=== PATIENT | female | born 1945 | race Caucasian/White ===

== ENCOUNTER → 2018-04-04 10:31 | Outpatient (CLI) | payer MEDICARE, SELFPAY ==
--- NOTE | 2018-04-04 | DI.RAD.S_ITS ---
PROCEDURE: XR LUMBAR SPINE 2-3V INDICATIONS: RIGHT HIP PAIN/ LOW BACK PAIN TECHNIQUE: 3 views of the lumbar spine were acquired. COMPARISON: None. FINDINGS: Bones: 5 [id number] vertebrae are present. There is mild focal scoliosis. There is mild atelectasis of L4 on L5. No vertebral body compression fractures. No suspicious bony lesions. There is mild to moderate degenerative disc disease throughout lumbar spine with disc space narrowing, endplate sclerosis and osteophyte formation. Moderate facet arthropathy is present at L4-L5 and L5-S1. Soft tissues: Overlying bowel gas pattern is normal. No suspicious soft tissue calcifications. Cholecystectomy clips are noted. IMPRESSION: Degenerative disc and facet disease. Dictated by: Abebe Rinaldi M.D. on 04/04/2018 at 11:29 Approved by: Abebe Rinaldi M.D. on 04/04/2018 at 11:32
--- NOTE | 2018-04-04 | DI.RAD.S_ITS ---
PROCEDURE: XR HIP W PEL IF DONE RT 2V INDICATIONS: RIGHT HIP PAIN/ LOW BACK PAIN TECHNIQUE: 2 views of the hip were acquired. COMPARISON: None. FINDINGS: Bones: No fractures or dislocations. No suspicious bony lesions. The visualized pelvic ring appears intact. There is mild symmetrical hip and sacroiliac joint degeneration. Mild degenerative changes in lower lumbar spine. Soft tissues: No suspicious soft tissue calcifications or masses. IMPRESSION: 1. Mild symmetric degenerative joint disease in hips and sacroiliac joints bilaterally. Dictated by: Abebe Rinaldi M.D. on 04/04/2018 at 11:43 Approved by: Abebe Rinaldi M.D. on 04/04/2018 at 11:44
== END ==
PROVIDERS: PCP Physician Assistant; Visit Provider Physician Assistant
DX: M51.36 Other intervertebral disc degeneration, lumbar region (principal); M16.11 Unilateral primary osteoarthritis, right hip; M54.5 Low back pain; M25.551 Pain in right hip; M47.816 Spondylosis without myelopathy or radiculopathy, lumbar region; M47.817 Spondylosis without myelopathy or radiculopathy, lumbosacral region; M47.818 Spondylosis without myelopathy or radiculopathy, sacral and sacrococcygeal region
CPT/HCPCS: 72100; 73502

== ENCOUNTER → 2018-04-07 16:06 | Outpatient (CLI) | payer MEDICARE, SELFPAY ==
--- NOTE | 2018-04-07 | DI.CT.S_ITS ---
PROCEDURE: CT PEL WO CON INDICATIONS: PAIN IN RIGHT HIP TECHNIQUE: Noncontrast 3 mm axial sections acquired through the bony pelvis, with coronal and sagittal reformatting. COMPARISON: [facility], CR, XR HIP W PEL IF DONE RT 2V, 04/04/2018, 10:15. FINDINGS: Image quality: Excellent. Bones: Examination of bony pelvis shows arthritic changes involving bilateral sacroiliac joints and bilateral hip joints. Osteophytic changes also noted involving symphysis pubis. No acute pelvic or hip fracture is seen. No hip dislocation. Bilateral femoral heads are intact. No evidence of avascular necrosis. Soft tissues: No pelvic free fluid or free air is seen. No evidence of bowel obstruction. No abnormal bowel wall thickening. Urinary bladder is within normal limits. There is no pelvic adenopathy. No gross pelvic or hip muscle abnormality. IMPRESSION: No evidence of acute pelvic or hip fracture. No hip dislocation. 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 No evidence of avascular necrosis. Dictated by: John Stevens M.D. on 04/07/2018 at 16:41 Approved by: John Stevens M.D. on 04/07/2018 at 16:44
== END ==
PROVIDERS: PCP Physician Assistant; Visit Provider Physician Assistant
DX: M25.551 Pain in right hip (principal); M16.0 Bilateral primary osteoarthritis of hip; M47.818 Spondylosis without myelopathy or radiculopathy, sacral and sacrococcygeal region
CPT/HCPCS: 72192

== ENCOUNTER → 2018-09-02 09:19 | Outpatient (CLI) | payer MEDICARE, SELFPAY ==
--- NOTE | 2018-09-02 | DI.MG.S_ITS ---
BILATERAL DIGITAL SCREENING MAMMOGRAM 3D/2D WITH CAD: 09/02/2018 CLINICAL: Routine screening. Comparison is made to exams dated: 08/05/2017 mammogram, 07/22/2016 mammogram, 04/02/2015 mammogram, 04/01/2014 mammogram - [facility], and 03/14/2013 mammogram - [facility]. There are scattered fibroglandular elements in both breasts. Current study was also evaluated with a Computer Aided Detection (CAD) system. There are benign calcifications in the right breast. No significant masses, calcifications, or other findings are seen in either breast. There has been no significant interval change. IMPRESSION: There is no mammographic evidence of malignancy. A 1 year screening mammogram is recommended. This exam was interpreted at Station ID: [id number]. NOTE: For mammograms, a report in lay terms will be sent to the patient. Approximately 15% of breast malignancies will not be visualized mammographically. In the management of a palpable breast mass, a negative mammogram must not discourage biopsy of a clinically suspicious lesion. Electronically Signed By: Horacio alexandre/maury:09/04/2018 07:49:47 letter sent: Normal Exam ACR BI-RADS Category 2: Benign Finding(s) [id number]
== END ==
PROVIDERS: PCP Physician Assistant; Visit Provider Physician Assistant
DX: Z12.31 Encounter for screening mammogram for malignant neoplasm of breast (principal)
CPT/HCPCS: 77063; 77067

== ENCOUNTER → 2019-05-13 12:50 | Outpatient (CLI) | payer MEDICARE, SELFPAY ==
--- NOTE | 2019-05-13 | DI.MRI.S_ITS ---
PROCEDURE: MR LUMBAR SPINE WO CON INDICATIONS: CERVICALGIA LOW BACK PAIN TECHNIQUE: Noncontrast sagittal T1 spin echo and T2 fast echo, sagittal STIR, axial T1 and T2 fast spin echo through the lumbar spine. In cases with scoliosis, additional coronal T2 fast spin echo may be performed. COMPARISON: [facility], CR, XR LUMBAR SPINE 2-3V, 04/04/2018, 10:15. [facility], CR, XR LUMBAR SPINE FLEXION EXTENSION, 05/02/2019, 11:01. FINDINGS: Image quality: Excellent. Alignment and Curvature: There is grade 1 anterolisthesis of L4 on L5. Bone Marrow: There are degenerative marrow signal changes at L2 and L3. No acute vertebral body compression fractures. Spinal Cord: Conus medullaris terminates at the L1 level. Visualized cord demonstrates normal signal and size. Paraspinous Soft Tissues: No paravertebral masses. L1-L2: Mild loss of disc height and disc desiccation. There is diffuse posterior disc bulge and disc osteophyte complex. The central canal is mildly narrowed. Rbhg-dt-amxdcciq bilateral foraminal stenosis. No definitive nerve root impingement. L2-L3: Mild loss of disc height and disc desiccation. There is diffuse posterior disc bulge and disc osteophyte complex. Superimposed right posterior paramedian disc extrusion with the extruding disc measuring 7 mm and posterior, surgeon in the emergency and 9 mm cephalocaudal, which occupies the right lateral recess. Mild bilateral facet arthropathy and hypertrophy of ligamentum flavum. The central canal is ojqaxsni-ns-pqshzxud narrowed. Severe right and mtoz-jh-ybubmszl left foraminal stenosis. Likely right L2 nerve root impingement. L3-L4: Preserved disc height. Moderate disc desiccation. There is diffuse posterior and posterior lateral disc bulge and disc protrusion. Moderate bilateral facet arthropathy and hypertrophy of ligamentum flavum. The central canal is mildly narrowed. Severe right and moderate left foraminal stenosis. Likely right L3 nerve root impingement. L4-L5: Preserved disc height. Moderate disc desiccation. There is diffuse posterior disc bulge. Severe bilateral facet arthropathy and hypertrophy of ligamentum flavum. The central canal is lfejmlnk-sr-jyeamcts narrowed. Moderate left and mild right foraminal stenosis. L5-S1: Preserved disc height. Moderate disc desiccation. There is diffuse posterior disc bulge. Moderate bilateral facet arthropathy. The central canal is patent. Moderate bilateral patient was name foraminal stenosis. IMPRESSION: 1. Multilevel degenerative disc disease and facet arthropathy as described. 2. Multilevel central canal stenosis, crrargut-uq-ffagxm at L2-L3 and L4-L5. 3. Multilevel foraminal stenosis as described. Dictated by: Abebe Rinaldi M.D. on 05/14/2019 at 10:31 Approved by: Abebe Rinaldi M.D. on 05/14/2019 at 17:21
--- NOTE | 2019-05-13 | DI.MRI.S_ITS ---
PROCEDURE: MR CERVICAL SPINE WO CON INDICATIONS: CERVICALGIA LOW BACK PAIN TECHNIQUE: Noncontrast sagittal T1 spin echo and T2 fast spin echo, sagittal STIR, foraminal oblique sagittal T2 fast spin echo, and axial gradient echo or T2 fast spin echo through the cervical spine. COMPARISON: None. FINDINGS: Image quality: Excellent. Alignment and Curvature: Loss of normal cervical lordosis. There is grade 1 anterolisthesis of C4 on C5, and minimal anterolisthesis of C3 on C4. Bone Marrow: Degenerative endplate signal changes are present. Spinal Cord: Severe loss of cord caliber at the level of C5-C6 and C6-C7 and mild-to- loss of cord caliber at C4-C5 consistent with myelomalacia. There is increased T2 signal in cervical cord from T5-C7 secondary to long-standing myelopathy. No cerebellar tonsillar herniation. Paraspinous Soft Tissues: No paravertebral masses. Prevertebral soft tissues are normal in thickness. C2-C3: Preserved disc height and disc desiccation. There is mild posterior disc bulge. The central canal is patent. No foraminal stenosis. No definitive nerve root impingement. C3-C4: Preserved disc height and disc desiccation. There is diffuse posterior disc bulge. Severe left and mild right facet arthropathy. The central canal is mildly narrowed. Severe left and mild right foraminal stenosis. There isleft nerve root impingement. C4-C5: Moderate loss of disc height and disc signal. There is diffuse posterior disc bulge. Posterior longitudinal ligament ossification. Severe left and mild right facet arthropathy. The central canal is severely narrowed. Severe left and moderate right foraminal stenosis. There is left nerve root impingement. C5-C6: Moderate loss of disc height and disc signal. There is diffuse posterior disc bulge. Bulky posterior longitudinal ligament ossification. Mild bilateral facet arthropathy. The central canal is severely narrowed. Severe bilateral foraminal stenosis. There is cord compression and bilateral nerve root impingement. C6-C7: Moderate loss of disc height and disc signal. There is diffuse posterior disc bulge. Bulky posterior longitudinal ligament ossification. The central canal is severely narrowed. Severe bilateral foraminal stenosis. There is cord compression and bilateral nerve root impingement. C7-T1: Preserved disc height and mild disc desiccation. There is bilateral uncovertebral hypertrophy. The central canal is patent. Moderate bilateral foraminal stenosis. IMPRESSION: 1. Multilevel degenerative disc disease and facet arthropathy as well less bulky posterior longitudinal ligament ossification in cervical spine. 2. Severe central canal stenosis at C5-C6 and C6-C7. 3. Multiple foraminal stenoses as described. 4. Myelopathy and myelomalacia in the cervical cord, severe at C5-C6 and C6-C7, cwko-jb-udnhdvcl at T5 and T5. Dictated by: Abebe Rinaldi M.D. on 05/14/2019 at 15:20 Approved by: Abebe Rinaldi M.D. on 05/14/2019 at 15:52
== END ==
PROVIDERS: PCP Physician Assistant; Visit Provider Orthopaedic Surgery
DX: M54.5 Low back pain (principal); M50.022 Cervical disc disorder at C5-C6 level with myelopathy; M47.12 Other spondylosis with myelopathy, cervical region; M51.04 Intervertebral disc disorders with myelopathy, thoracic region; M48.02 Spinal stenosis, cervical region; M48.05 Spinal stenosis, thoracolumbar region; G95.89 Other specified diseases of spinal cord; M51.36 Other intervertebral disc degeneration, lumbar region; M47.816 Spondylosis without myelopathy or radiculopathy, lumbar region; M47.817 Spondylosis without myelopathy or radiculopathy, lumbosacral region; M48.061 Spinal stenosis, lumbar region without neurogenic claudication; M48.07 Spinal stenosis, lumbosacral region
CPT/HCPCS: 72141; 72148

== ENCOUNTER → 2019-05-16 14:06 | Outpatient (CLI) | payer MEDICARE, SELFPAY ==
[2019-05-16 14:45] LABS: Add Manual Diff / Slide Review NO; Basophils Absolute Auto 100 /uL (0-100); Basophils Percent Auto 0.7 % (0-2); Eosinophils Absolute Auto 100 /uL (0-450); Eosinophils Percent Auto 1.5 % (2-4); Hematocrit 46.5 % (36-46); Hemoglobin 15.6 g/dL (12.0-16.0); Lymphocytes Absolute Auto 1800 /uL (1100-4500); Lymphocytes Percent Auto 21.8 % (25-40); Mean Corpuscular HGB Conc 33.5 % (30-36); Mean Corpuscular Volume 92.6 fL (80-100); Monocytes Absolute Auto 600 /uL (0-900); Monocytes Percent Auto 6.8 % (3-14); Neutrophils Absolute Auto 5700 /uL (1500-7000); Neutrophils Percent Auto 69.2 % (50-75); Platelet Count 252 X10^3/uL (150-400); Red Blood Cell Count 5.02 X10^6/uL (4.0-5.2); Red Cell Distribution Width 14.1 % (11.6-14.8); White Blood Cell Count 8.2 X10^3/uL (4.5-11.0)
[2019-05-16 15:07] LABS: BUN Creatinine Ratio 18.6 (6-22); Blood Urea Nitrogen 13 mg/dL (7-17); Calcium 9.8 mg/dL (8.4-10.2); Carbon Dioxide 24 mmol/L (22-32); Chloride 105 mmol/L (98-107); Estimated Glomerular Filt Rate > 60.0 mL/min (>60); Glucose 129 mg/dL (80-110); HEMOLYSIS 40 (0-50); Potassium 3.9 mmol/L (3.4-5.1); Sodium 140 mmol/L (137-145)
== END ==
PROVIDERS: PCP Physician Assistant; Visit Provider Orthopaedic Surgery
DX: Z01.818 Encounter for other preprocedural examination (principal)
CPT/HCPCS: 36415; 80048; 85025; 93005

== ENCOUNTER 2019-05-24 06:07 | Inpatient (IN) | payer MEDICARE, SELFPAY ==
[2019-05-23 07:52] VITALS: BMI 37.1
[2019-05-24] VITALS (13 sets, daily range): BP systolic 115–137; BP diastolic 66–83; PULSE 67–102; RESP 11–23; TEMP 35.8–36.9; O2SAT 93–98; BMI 37.2
--- NOTE | 2019-05-24 | DI.RAD.S_ITS ---
PROCEDURE: XR CERVICAL SPINE 2V OR 3V INDICATIONS: C4-5, C5-6 ANTERIOR FUSION, CORPECTOMY TECHNIQUE: 3 view(s) of the cervical spine were acquired. COMPARISON: [facility], CARITO, XR CERVICAL SPINE 2 OR 3 VIEWS, 05/16/2019, 11:06. [facility], MR, MR CERVICAL SPINE WO CON, 05/13/2019, 13:44. FINDINGS: Bones: With reference to the preoperative images the patient has undergone anterior fusion, between what appears to be the C4 vertebral body and the C7 vertebral body. A portion of the vertebral bodies at C6 and C7 appear to have been resected with some form of interbody orthopedic prosthesis. The C4 bilateral anterior fixation screws on the lateral view are clearly within the T4 vertebral body, but the exact positioning of the C5 screws is in determinate and conceivably could be superimposed on the C5-C6 disc space. Soft tissues: No prevertebral soft tissue swelling. IMPRESSION: The exact anatomic positioning of the second set of bilateral fixation screws through the anterior fusion plate below the C4 vertebral body screws is indeterminate by plain film imaging, potentially superimposed on the C5-C6 disc space. A portion of the lower cervical spine vertebral bodies has been resected with an apparent orthopedic prosthesis device occupying the interspace. Again, the exact anatomy in this area cannot be established on plain film and followup CT scanning may be warranted. Dictated by: Eliseo Park M.D. on 05/24/2019 at 12:18 Approved by: Eliseo Park M.D. on 05/24/2019 at 12:46
--- NOTE | 2019-05-24 07:02 | PM.PREOP ---
Pre-operative Note Interval Note History & Physical reviewed/Exam performed by Physician: Yes Changes to H&P: No
--- NOTE | 2019-05-24 07:23 | P.OP_ITS ---
Operative Date/Time/Diagnoses Date of procedure: 05/24/19 Time of procedure: 11:42 Pre-op diagnosis: Cervical stenosis with myelopathy Post-op diagnosis: same Procedure & Clinicians Procedure: C4-5 anterior cervical diskectomy and fusion C6 corpectomy with C5-6 and C6-7 diskectomies C4-5 cage C6 corpectomy cage Three level anterior cervical plate Iliac crest bone graft aspirate Use of microscope Same procedure as scheduled: Yes Indications: [age] year old female with progressive myelopathy with severe cervical stenosis. She had failed conservative management and requested operative intervention. Risks and benefits of surgery were discussed and appropriate consents were obtained. Surgeon: Herber Villarreal Mainstreaming Facilitator: Kathy Kim Anesthesia Type: General Operative Notes Findings: None Closure Type: primary Specimen(s): none sent Prosthetic devices, grafts, tissues, transplants, or devices: NuVasive cervical CoRoent cage NuVasive Xcore mini cervical expandable cage NuVasive Archon plate Applied: catheter Estimated Blood Loss (mL): 50 Blood products transfused: none Procedure in detail: Patient was brought to the operating room and intubated on the table. A time-out was performed. Preoperative antibiotics were given. The neck was prepped and draped in the standard sterile fashion. Using a skin fold, we made a 4 cm longitudinal incision on the left side. We used Bovie to go through the platysma and then did a standard anterolateral blunt dissection down to the precervical fascia. Fascia was nicked and elevated up. A marker was placed and x-ray was taken for localization. We then subperiosteally elevated up the longus colli muscles. Self-retaining retractors were placed. Heavener pins were placed at C4 and C5. We brought in the microscope. A scalpel used to perform an annulotomy at C4-5. A combination of curettes, Kerrisons, pituitaries were used perform the anterior diskectomy at this level. Used the bur to remove some posterior osteophytes. We then took down the PLL and removed the large herniated disc tissue until the central canal was free. We could run the nerve hook out the neural foramen and along the superior and inferior endplates and everything appeared open. A small stab incision was made over the left anterior iliac crest. A Jamshidi needle was advanced down the pedicle and 5 mL of bone marrow was aspirated. We then trialed and placed a Coroent cage packed with Osteocel bone graft and the icbg aspirate into the C4-5 disc space and confirmed positioning under x- ray. We then moved our retractors down, centered around the C6 vertebral body. We used a scalpel to perform an annulotomy at C5-6 and C6-7. We used curettes, Kerrisons, and pituitaries to perform diskectomies at these levels. We then used combination of Leksell rongeur, Kerrisons, curettes, and a bur to perform a central channel corpectomy through C6. We came down to the PLL. We used a nerve hook to go through the PLL at mid body and began pulling it up and carefully peeling it back from the dura. We continued removing the thickened disc and ligament tissue until we could run a nerve hook along both sides of the corpectomy as well as along the inferior endplate of C5 and the superior endplate of C7 and everything appeared decompressed. We trialed and measured for our expandable cage. This was conformed with lordotic endplates and packed with bone graft. This was inserted into the corpectomy site and then expanded with x-ray guidance. We then packed more bone graft into the cage as well as anterior to the cage. We then trialed our plate under x-ray and positioned it with temporary pins. We used the awl to drill holes and placed fixed locking screws into C4, C5, and C7. Final x-rays were taken. The wound was irrigated. There was no bleeding. The carotid was beating nicely. A Victorino drain was placed. The platysma was closed. The superficial was closed. The skin was closed. A sterile dressing was placed. They were then extubated and brought to recovery room with no complications. Complications: none Post-operative Condition: stable Disposition: PACU Plan for aftercare: Inpatient. Up with therapy.
[2019-05-24] MEDS: LACTATED RINGERS 1,000 ML 42 ML IV ×2 (07:33→10:11)
[2019-05-24] MEDS: CEFAZOLIN 2 GM/100 ML FROZ.PIGGY IV ×2 (07:53→15:56)
--- NOTE | 2019-05-24 08:30 | SUR.OPER ---
Supine, head on gel donut. Arms padded with gel pads, tucked at sides, towel roll under shoulders. Safety belt at thigh. Legs uncrossed with tape over blanket
[2019-05-24] MEDS: BUPIVACAINE 0.25% W/ EPI 30 ML VIAL 60 ML INJ (08:50)
[2019-05-24] MEDS: THROMBIN (RECOMBINANT) 5,000 UNIT VIAL 5000 UNIT TOP (08:50)
[2019-05-24] MEDS: SODIUM CHLORIDE 0.9% 1,000 ML, GENTAMICIN 80 MG IRR (08:51)
--- NOTE | 2019-05-24 12:42 | SUR.PHASEI ---
Report called to Tim.
--- NOTE | 2019-05-24 12:48 | SUR.PHASEI ---
Swallowed after having an ice chip without difficulty.
--- NOTE | 2019-05-24 13:12 | SUR.PHASEI ---
Patient transferred to the floor with a black bag and blue/black bag. Report to [place]. VS stable. Dressings checked with RN, unchanged. IV saline locked.
[2019-05-24] MEDS: LACTATED RINGERS 1,000 ML 125 ML IV ×2 (13:13→21:21)
--- NOTE | 2019-05-24 13:13 | SUR.PHASEI ---
Addendum: forbes and jessa drain patent.
[2019-05-24] MEDS: DEXAMETHASONE 4 MG/ML VIAL IV ×2 (13:20→18:58)
[2019-05-24] MEDS: CELECOXIB 200 MG CAPSULE 400 MG PO (13:21)
--- NOTE | 2019-05-24 15:09 | PM.PNPO.1 ---
Subjective Subjective Date Patient Seen: 05/24/19 Time Patient Seen: 15:09 Interval history: She is doing well. Exam Vital Signs (past 8 hours): - 05/24/19 12:06 05/24/19 12:11 05/24/19 12:16 Temperature 97.1 F L Pulse Rate 94 H 96 H 93 H Respiratory Rate 23 14 20 Blood Pressure 133/69 115/66 116/72 Pulse Oximetry 98 93 98 05/24/19 12:21 05/24/19 12:36 05/24/19 12:47 Temperature 96.5 F L Pulse Rate 90 86 85 Respiratory Rate 12 11 L 12 Blood Pressure 115/71 116/75 118/67 Pulse Oximetry 98 94 95 05/24/19 13:01 05/24/19 13:30 05/24/19 14:00 Temperature 98.5 F 97.7 F 97.7 F Pulse Rate 82 85 84 Respiratory Rate 20 18 18 Blood Pressure 131/68 127/71 135/73 Pulse Oximetry 94 95 97 Oxygen Delivery Method Room Air Oxygen Flow Rate 0 Const Orientation: alert and oriented x3 Back/Spine/Pelvis Other: CDI. 5/5 motor both upper extremities except for unchanged 4/5 facility service associate and intrinsics. Assessment & Plan Post-op Postoperative Procedures: Procedures Operation Date: 05/24/19 07:45 Actual Procedures Side Surgeon p C45 anterior disectomy, C6 corpectomy, C4-7 anterior instrumentated fusion w/ bone graft Herber Villarreal MD Her neuro exam is stable. She is doing well. Mobilize with PT.
--- NOTE | 2019-05-24 15:45 | PT.IIE ---
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) Surgery Performed Operation Date: 05/24/19 07:45 Actual Procedures p C45 anterior disectomy, C6 corpectomy, C4-7 anterior instrumentated fusion w/ bone graft - Herber Villarreal MD Surgical History (Last Updated 05/23/19 @ 08:11 by Avril Barraza RN) H/O: hysterectomy (Acute) Hx of bariatric surgery (Acute ~2008) Hx of cholecystectomy (Acute) Hx of tonsillectomy (Acute) Hx of tubal ligation (Acute) Medical History (Last Updated 05/23/19 @ 08:11 by Avril Barraza RN) Arthritis (Acute) HLD (hyperlipidemia) (Acute) HTN (hypertension) (Acute) Low back pain (Acute) Neck pain (Acute) Numbness and tingling (Acute) Spinal stenosis (Acute) Physical Therapy Inpatient Evaluation/Re-Eval M1 PT/OT-IP Prior Functional Status Start: 05/24/19 16:26 Freq: NEEDED Status: Active Protocol: Document 05/24/19 15:45 AB (Rec: 05/24/19 16:46 AB [id number]) Medical Review Prior Functional Status Medical History Reviewed Yes Communication able to make needs known Mobility and Gait pt stated that she is independent with all mobilities and ambulation without AD but stated that she has been falling at home Social History Household Members none Living Arrangements House Number of Floors (Floors) One Floor Number of Stairs To Enter/Railing? 1 step to enter Home Environment High Toilet,Built-In Shower Seat Home Equipment Front Wheel Walker,Four Wheel Walker,Straight Cane,Hand Held Shower,Grab Bars Near Toilet, Grab Bars In Shower Additional Social History Comment pt will have her daughter Margoth overnight to assist her from 5 pm to 7am M2 PT-IP Current Condition Start: 05/24/19 16:26 Freq: NEEDED Status: Active Protocol: Document 05/24/19 15:45 AB (Rec: 05/24/19 16:46 AB [id number]) Physical Therapy Current Condition Current Condition Evaluation Date 05/24/19 Treatment Diagnosis s/p C4-5 ACDF; C5-6 discectomies and C6 corpectomy ; difficulty in walking Onset Date 05/24/19 Precautions Cervical Spine Precautions Soft Collar for Comfort,No Heavy Lifting,Log Roll Other Precautions falls M3 PT-IP Subjective Start: 05/24/19 16:26 Freq: NEEDED Status: Active Protocol: Document 05/24/19 15:45 AB (Rec: 05/24/19 16:46 AB [id number]) Subjective Physical Therapy Visit Type Type Initial Evaluation Visit Start Time 15:45 Visit Stop Time 16:14 Total Visit Minutes 29 Number of PAINT TRIMMER PIPE BOWLS Visits 0 Physical Therapy Visit Comments Patient Comments pt agreeable to do PT Therapy Pain Assessment Pain Present Pain Present Denied Pain M4 PT-IP Mobility and Gait Start: 05/24/19 16:26 Freq: NEEDED Status: Active Protocol: Document 05/24/19 15:45 AB (Rec: 05/24/19 16:46 AB [id number]) PT-Bed Mobility Assessment Rolling Type of Rolling Log Rolling Level of Assist Standby Assistance Supine to Sit Supine to Sit Contact Guard Assistance,1 Person Assistance Scooting Scooting to Edge of Bed Standby Assistance PT-Transfer Assessment Sit to and From Stand Sit to and from Stand Contact Guard Assistance,1 Person Assistance,Use of Upper Extremities Equipment Transfer Assistive Device Gait Belt,Front Wheeled Walker Orthotic/Prosthetic Devices or Brace: Yes Transfers Transfer Destination Chair Transfer Technique ambulated using FWW Transfer Ability Level of Assist Minimal Assistance,Moderate Assistance,1 Person Assistance ,Use of Upper Extremities Comments Mobility Comments pt completed bed mobility supine to sit CGA and cues for log roll technique. pt completed sit to stand CGA. initiated ambulation without AD but pt with unsteady gait and requiring mod A and cues. pt ambulated towards the sink . educated pt and pt's daughter for soft collar management. pt's daughter was able to don/doff collar safely. pt ambulated using FWW towards the chair min A to mod A and cues. pt agreed to sit up on the chair. call light and table placed within reach. left pt with family in room. Gait Assessment Gait Gait Assistance Required: Minimum Assistance,Moderate Assistance Distance (Feet) 10 Able to Maintain Weight Bearing Status Yes During Gait Assistive Devices Assistive Device None,Gait Belt,Front Wheeled Walker Orthotic/Prosthetic Devices or Brace: Yes Gait Deviations General Gait Pattern Antalgic,Decreased Stride Length,Decreased Feet Clearance,Step-to Gait Factors Limiting Gait Function Factors Limiting Gait Function Decreased Activity Tolerance, Decreased Strength,Limited Range of Motion,Poor Balance Comments Gait Comments completed ambulation without AD ~ 10 ft mod A and cues; using FWW ~ 10 ft min to mod A and cues. pt presents with unsteady gait with decrease step width requiring mod A without AD. educated pt and family regarding safety and recommendation of FWW use at this time. pt and family agreed. PT-Balance Assessment Sitting Balance and Reactions Static Sitting Balance Ability Good Dynamic Sitting Balance Ability Good Standing Balance and Reactions Static Standing Balance Ability Fair Dynamic Standing Balance Ability Poor Device Used using FWW M5 PT-IP Objective Assessments Start: 05/24/19 16:26 Freq: NEEDED Status: Active Protocol: Document 05/24/19 15:45 AB (Rec: 05/24/19 16:46 AB [id number]) Orientation Orientation/Cognition Level of Alertness Alert Orientation Name,Place,Situation Language Function Ability No Deficits Noted Safety Awareness Decreased Safety Awareness Gross Range of Motion Lower Extremity ROM Assessment Within Functional Limits Strength Lower Extremity Strength Hip 4-/5 Knee 4-/5 Muscle Tone Muscle Tone WNL Yes M6 PT-IP Treatment Start: 05/24/19 16:26 Freq: NEEDED Status: Active Protocol: Document 05/24/19 15:45 AB (Rec: 05/24/19 16:46 AB [id number]) Physical Therapy Treatment Education Education Provided Precautions,Post-Op Packet, Safety Brace Education [place],Patient, Caregiver M7 PT-IP Assessment and Plan Start: 05/24/19 16:26 Freq: NEEDED Status: Active Protocol: Document 05/24/19 15:45 AB (Rec: 05/24/19 16:46 AB [id number]) PT Summary Assessment and Plan Potential Rehabilitation Potential Good Status of Condition at Evaluation Evolving Summary Impairments Pain,ROM,Strength,Balance, Coordination,Sensation,Tone, Cognition,Bed Mobility, Transfers,Gait,Activity Tolerance Assessment Summary pt requires min to mod A with transfers/ambulation using FWW . pt presents with unsteady gait and recommending use of FWW at this time. informed family that pt may require 24/ 7 assist initially until pt is steadier but will continue to assess progress. Goals Bed Mobility Goal Independent Transfer Goal Independent,Front Wheeled Walker Gait Goal Independent,Front Wheel Walker Gait Distance 200 Other Goals up/down 1 step using FWW SBA Days to Meet Goals 5 Frequency of Treatment Frequency Of Treatment Twice a Day Treatment Plan Physical Therapy Treatment Plan Bed Mobility Training,Transfer Training,Gait Training, Therapeutic Exercise,Balance Retraining,Post Op Education, Discharge Planning,Hot or Cold Pack,Neuromuscular Re-ed, Coordination Retraining,Manual Therapy Other Recommendations and Next Treatment ambulation, stair climbing, Focus caregiver training Recommendations To Nursing Amount of Assist Needed 1 Person Assist Discharge Recommendations PT Discharge Recommendations Home with / Assist,Home Health
[2019-05-24] MEDS: AMLODIPINE 2.5 MG TABLET PO (20:44)
[2019-05-24] MEDS: GABAPENTIN 300 MG CAPSULE PO (20:44)
[2019-05-24] MEDS: DOCUSATE 100 MG CAPSULE PO (20:44)
[2019-05-24] MEDS: LOVASTATIN 20 MG TABLET PO (20:45)
[2019-05-24] MEDS: HYDROCODONE/ACET 5/325 TABLET 1 TAB PO (20:45)
[2019-05-24] MEDS: ZOLPIDEM 5 MG TABLET PO (20:47)
[2019-05-24] MEDS: CELECOXIB 200 MG CAPSULE PO (20:47)
[2019-05-24] MEDS: SENNOSIDES 8.6 MG TABLET 17.2 MG PO (20:47)
[2019-05-24] MEDS: ONDANSETRON 4 MG/2 ML INJ IV (20:49)
[2019-05-25] MEDS: CEFAZOLIN 2 GM/100 ML FROZ.PIGGY IV (00:08)
[2019-05-25] MEDS: DEXAMETHASONE 4 MG/ML VIAL IV ×2 (00:08→06:29)
[2019-05-25 00:15] VITALS: BP 113/63; PULSE 83; RESP 16; TEMP 36.1; O2SAT 93
--- NOTE | 2019-05-25 02:12 | PC.NURSE ---
Patient moved to room 222 due to alarm sounding off staff emergency, when all was well. Engineering came to fix, unable, so moved patient to this room. Will place sign on door for family that she moved to this room. Did not want to call and disturb at this time, patient agrees.l
[2019-05-25 05:34] VITALS: BP 127/70; PULSE 77; RESP 16; TEMP 36.5; O2SAT 93
--- NOTE | 2019-05-25 06:36 | PC.NURSE ---
Patient is taking po well. IVF was stopped.
[2019-05-25 08:00] VITALS: BP 142/75; PULSE 73; RESP 16; TEMP 36.9; O2SAT 95
--- NOTE | 2019-05-25 08:05 | PM.PNPO.1 ---
Subjective Subjective Date Patient Seen: 05/25/19 Time Patient Seen: 08:05 Interval history: She is doing very well. Minimal pain. Exam Vital Signs (past 8 hours): - 05/25/19 00:15 05/25/19 05:34 Temperature 96.9 F L 97.7 F Pulse Rate 83 77 Respiratory Rate 16 16 Blood Pressure 113/63 127/70 Pulse Oximetry 93 93 Oxygen Delivery Method Room Air Oxygen Flow Rate 0 Const Orientation: alert and oriented x3 Back/Spine/Pelvis Other: CDI. 5/5 motor both upper extremities except for 4/5 right intrinsics and 4/5 bilateral sweeper cleaner industrial, overall improved Assessment & Plan Post-op Postoperative Procedures: Procedures Operation Date: 05/24/19 07:45 Actual Procedures Side Surgeon p C45 anterior disectomy, C6 corpectomy, C4-7 anterior instrumentated fusion w/ bone graft Herber Villarreal MD She is doing very well. We are going to mobilize her today with physical therapy. Anticipate discharge home tomorrow.
--- NOTE | 2019-05-25 08:23 | OT.IP.EVAL ---
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) Surgery Performed Operation Date: 05/24/19 07:45 Actual Procedures p C45 anterior disectomy, C6 corpectomy, C4-7 anterior instrumentated fusion w/ bone graft - Herber Villarreal MD Past Medical History (Last Updated 05/23/19 @ 08:11 by Avril Barraza RN) Arthritis (Acute) HLD (hyperlipidemia) (Acute) HTN (hypertension) (Acute) Low back pain (Acute) Neck pain (Acute) Numbness and tingling (Acute) Spinal stenosis (Acute) Surgical History (Last Updated 05/23/19 @ 08:11 by Avril Barraza RN) H/O: hysterectomy (Acute) Hx of bariatric surgery (Acute ~2008) Hx of cholecystectomy (Acute) Hx of tonsillectomy (Acute) Hx of tubal ligation (Acute) Occupational Therapy Inpatient Evaluation/Re-Eval M1 PT/OT-IP Prior Functional Status Start: 05/25/19 08:53 Freq: NEEDED Status: Active Protocol: Document 05/25/19 08:54 [facility] (Rec: 05/25/19 09:11 [facility] [id number]) Medical Review Prior Functional Status Medical History Reviewed Yes Communication able to make needs known Mobility and Gait pt stated that she is independent with all mobilities and ambulation without AD but stated that she has been falling at home Activities of Daily Living and IADL's Completely independent with needs ADL's and IADL's needs. Social History Household Members none Living Arrangements House Number of Floors (Floors) One Floor Number of Stairs To Enter/Railing? 1 step to enter Home Environment High Toilet,Built-In Shower Seat Home Equipment Front Wheel Walker,Four Wheel Walker,Straight Cane,Hand Held Shower,Grab Bars Near Toilet, Grab Bars In Shower Additional Social History Comment pt will have her daughter Margoth overnight to assist her from 5 pm to 7am M2 OT-IP Current Condition Start: 05/25/19 08:53 Freq: Status: Active Protocol: Document 05/25/19 08:54 [facility] (Rec: 05/25/19 09:11 [facility] [id number]) Occupational Therapy Current Condition Current Condition Evaluation Date 05/25/19 Treatment Diagnosis s/p C4-5, ACDF, C5-6 discectomy and C6 corpectomy Diagnosis Onset Date 05/24/19 Post Operative Precautions Cervical Spine Precautions Soft Collar for Comfort,No Heavy Lifting,Log Roll Weight Bearing Status Weight Bearing Status Weight Bear as Tolerated M3 OT- IP Subjective and Pain Start: 05/25/19 08:53 Freq: Status: Active Protocol: Document 05/25/19 08:54 [facility] (Rec: 05/25/19 09:11 [facility] [id number]) OT- Subjective Occupational Therapy Visit Type Type Treatment Note Visit Start Time 08:23 Visit Stop Time 08:50 Total Visit Minutes 27 Occupational Therapy Visit Comments Patient Comments Pt willing to get up for OT eval. Patient/Caregiver Goals Pt looking to go home with her daughter to assist in the evenings and at night. OT Pain Assessment Pain When Pain Assessed At Rest Pain Present Pain Present Pain Reported Location Neck Intensity 3 Scale Used Numeric (1 - 10) M4 OT- IP ADL's Start: 05/25/19 08:53 Freq: Status: Active Protocol: Document 05/25/19 08:54 [facility] (Rec: 05/25/19 09:11 [facility] [id number]) OT KFI-Aoxi-Lhkrbce General Evaluation Self-Feeding Ability Independent Comments OT Self-Feeding Comments Went over swallowing information after ACDF and emphasized to sit upright while eating, take smaller bites, and to eat softer food initially. BODY SHOP FLOORPERSON came in the room at the end of OT session. OT ADL-Grooming General Evaluation Grooming Ability Standby Assistance Areas Needing Assistance Retrieving/Set-up of Grooming Items Comments OT Grooming Comments Educated to lean over to spit or spit into a cup. OT ADL-Oral Care General Eval Oral Care Ability Independent OT ADL-Dressing General Eval Lower Body Dressing Ability Standby Assistance Areas Needing Assistance Socks Comments OT Dressing Comments Pt able to cross her legs over comfortably in order to amanda/ doff socks. Pt able to independently amanda/doff soft collar after initial directions. OT ADL-Toileting Comments OT Toileting Comments Forbes still in place. OT ADL-Bathing Comments OT Bathing Comments Pt wanting to shower tomorrow after forbes and drain taken out. Pt daughter will be there when showering at home. To do shower for OT treatment tomorrow. M5 OT- IP IADL's Start: 05/25/19 08:53 Freq: Status: Active Protocol: Document 05/25/19 08:54 [facility] (Rec: 05/25/19 09:11 [facility] [id number]) OT-Instrumental Activities of Daily Living Home Safety Awareness Awareness of Need for Assistance at Home Good Awareness Medication Management Medication Management No Deficits Identified Money Management Money Management No Deficits Identified Meal Preparation Meal Preparation Comments Pt's daughter will assist at home. Timber Mill Worker Timber Mill Worker Caregiver Provides Assist M6 OT- IP Functional Cognition Start: 05/25/19 08:53 Freq: Status: Active Protocol: Document 05/25/19 08:54 [facility] (Rec: 05/25/19 09:11 [facility] [id number]) Cognitive Factors Limiting Selfcare Function Cognitive Ability Level of Alertness Alert Patient Orientation Name,Age,Birthday,Month,Date, Year,Day of Week,Place, Situation Attention Span Ability Capable of Focused Attention, Capable of Sustained Attention Ability to Follow Commands Able to Follow Multi-Step Commands Memory Description No Deficits Noted Safety Awareness Underestimates Need for Assistance Problem Solving Ability Needs Assist to Identify Solutions Cognitive Comments Cognitive Assessment Comments VC to keep FWW in front of her at all times. VC to use at least one hand to push up from surface sitting from. OT- Vision and Hearing OT- Hearing Assessment OT- Hearing Assessment WFL M7 OT- IP Mobility and Balance Start: 05/25/19 08:53 Freq: Status: Active Protocol: Document 05/25/19 08:54 [facility] (Rec: 05/25/19 09:11 [facility] [id number]) OT-Transfer Assessment Sit to and From Stand Sit to and from Stand Standby Assistance Transfers Transfer Ability Contact Guard Assistance Technique Transfer Destination Bed,Chair Transfer Technique Stand Step Pivot Devices Transfer Assistive Devices Gait Belt,Front Wheeled Walker Comments Mobility Comments CGA for balance with use of FWW. OT- Gait Assessment Comments Gait Ability Comments Able to walk to and from the sink from bed and recliner. OT- Balance Assessment Sitting Balance and Reactions Static Sitting Balance Ability Normal Dynamic Sitting Balance Ability Normal Standing Balance and Reactions Static Standing Balance Ability Good Dynamic Standing Balance Ability Fair M8 OT- IP Objective Assessments Start: 05/25/19 08:53 Freq: Status: Active Protocol: Document 05/25/19 08:54 [facility] (Rec: 05/25/19 09:11 [facility] [id number]) OT Gross Range of Motion Upper Extremity Range of Motion Assessment Within Functional Limits OT Strength Upper Extremity Strength Assessment Within Functional Limits M9 OT- IP Assessment and Plan Start: 05/25/19 08:53 Freq: Status: Active Protocol: Document 05/25/19 08:54 [facility] (Rec: 05/25/19 09:11 [facility] [id number]) OT Summary Assessment and Plan Potential Rehabilitation Potential Good Analytic Complexity at Evaluation Low Summary OT Impairments Pain,Functional Mobility, Dressing,Toileting,Bathing, Toilet Transfers,Shower Transfers Progress Towards Goals Progressing Toward Goals Assessment Summary Pt low complexity and main barriers are decreased mobility and now needing use of FWW, vc for cervical precautions and to incorporate during ADL needs. Pt has a supportive daughter to stay with her in the evenings and night and looking to go home tomorrow. Goals Grooming Goal Independent Dressing Goal Independent Toileting Goal Independent Bathing Goal Standby Assistance Toilet Transfer Goal Independent Shower Transfer Goal Standby Assistance Patient/Caregiver Education Goal Demonstrate Post-Op Precautions,Caregiver Independent Assisting Patient Days to Meet Goals 2 Frequency of Treatment Frequency Of Treatment Once a Day Treatment Plan OT Treatment Plan ADL Training,Functional Mobility,Patient/Family Education,Discharge Planning Other Treatment Recommendations and Next shower Treatment Focus Discharge Recommendations OT Discharge Recommendations Home with Assistance
--- NOTE | 2019-05-25 09:47 | PC.NURSE ---
Patient back to bed for forbes catheter removal, patient tolerated well.
[2019-05-25] MEDS: CELECOXIB 200 MG CAPSULE PO ×2 (09:52→21:14)
[2019-05-25] MEDS: DOCUSATE 100 MG CAPSULE PO ×2 (09:52→21:14)
[2019-05-25] MEDS: ASPIRIN EC 81 MG TABLET PO (09:52)
[2019-05-25] MEDS: HYDROCODONE/ACET 5/325 TABLET 1 TAB PO ×3 (09:55→21:14)
--- NOTE | 2019-05-25 10:28 | PT.IPTN ---
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) Surgery Performed Operation Date: 05/24/19 07:45 Actual Procedures p C45 anterior disectomy, C6 corpectomy, C4-7 anterior instrumentated fusion w/ bone graft - Herber Villarreal MD Physical Therapy Treatment Note M2 PT-IP Current Condition Start: 05/24/19 16:26 Freq: NEEDED Status: Active Protocol: Document 05/24/19 15:45 AB (Rec: 05/24/19 16:46 AB [id number]) Physical Therapy Current Condition Current Condition Evaluation Date 05/24/19 Treatment Diagnosis s/p C4-5 ACDF; C5-6 discectomies and C6 corpectomy ; difficulty in walking Onset Date 05/24/19 Precautions Cervical Spine Precautions Soft Collar for Comfort,No Heavy Lifting,Log Roll Other Precautions falls M3 PT-IP Subjective Start: 05/24/19 16:26 Freq: NEEDED Status: Active Protocol: Document 05/25/19 10:28 AB (Rec: 05/25/19 12:17 AB [id number]) Subjective Physical Therapy Visit Type Type Treatment Note Visit Start Time 10:28 Visit Stop Time 10:55 Total Visit Minutes 27 Number of CLINICAL RESEARCHER Visits 0 Physical Therapy Visit Comments Patient Comments pt agreeable to do PT Therapy Pain Assessment Pain When Pain Assessed At Rest Pain Present Pain Present Pain Reported Location Neck Intensity 3 Scale Used Numeric (1 - 10) Pain Management Techniques Timing of Activity with Medications M4 PT-IP Mobility and Gait Start: 05/24/19 16:26 Freq: NEEDED Status: Active Protocol: Document 05/25/19 10:28 AB (Rec: 05/25/19 12:17 AB [id number]) PT-Bed Mobility Assessment Supine to Sit Supine to Sit Standby Assistance,1 Person Assistance,Head of Bed Elevated Sit to Supine Sit to Supine Standby Assistance,Head of Bed Elevated Scooting Scooting to Edge of Bed Standby Assistance PT-Transfer Assessment Sit to and From Stand Sit to and from Stand Standby Assistance,Contact Guard Assistance,1 Person Assistance,Use of Upper Extremities Equipment Transfer Assistive Device Gait Belt,Front Wheeled Walker Orthotic/Prosthetic Devices or Brace: No Transfer Ability Level of Assist Contact Guard Assistance,1 Person Assistance,Use of Upper Extremities Gait Assessment Gait Gait Assistance Required: Contact Guard Assist Distance (Feet) 300 Able to Maintain Weight Bearing Status Yes During Gait Assistive Devices Assistive Device Gait Belt,Front Wheeled Walker Orthotic/Prosthetic Devices or Brace: Yes Gait Deviations General Gait Pattern Antalgic,Decreased Stride Length,Decreased Feet Clearance Factors Limiting Gait Function Factors Limiting Gait Function Decreased Activity Tolerance, Decreased Strength,Limited Range of Motion,Pain,Poor Balance,Poor Safety Awareness Comments Gait Comments pt requires CGA with ambulation using FWW. pt is steadier with standing and ambulation today compared to yesterday with less antalgic gait. Ambulated short distance in room ~ 5 ft without AD CGA. M5 PT-IP Objective Assessments Start: 05/24/19 16:26 Freq: NEEDED Status: Active Protocol: Document 05/24/19 15:45 AB (Rec: 05/24/19 16:46 AB [id number]) Orientation Orientation/Cognition Level of Alertness Alert Orientation Name,Place,Situation Language Function Ability No Deficits Noted Safety Awareness Decreased Safety Awareness Gross Range of Motion Lower Extremity ROM Assessment Within Functional Limits Strength Lower Extremity Strength Hip 4-/5 Knee 4-/5 Muscle Tone Muscle Tone WNL Yes M6 PT-IP Treatment Start: 05/24/19 16:26 Freq: NEEDED Status: Active Protocol: Document 05/25/19 10:28 AB (Rec: 05/25/19 12:17 AB [id number]) Physical Therapy Treatment Education Education Provided Precautions,Safety M7 PT-IP Assessment and Plan Start: 05/24/19 16:26 Freq: NEEDED Status: Active Protocol: Document 05/25/19 10:28 AB (Rec: 05/25/19 12:17 AB [id number]) PT Summary Assessment and Plan Potential Rehabilitation Potential Good Summary Impairments Pain,ROM,Strength,Balance, Coordination,Sensation,Tone, Cognition,Bed Mobility, Transfers,Gait,Activity Tolerance Progress Towards Goals Progressing Toward Goals Assessment Summary pt progressing with mobility. pt plans to go home and stated that her daughter will check on her in the mornings and stay overnight with her. will continue to assess progress. Goals Bed Mobility Goal Independent Transfer Goal Independent,Front Wheeled Walker Gait Goal Independent,Front Wheel Walker Gait Distance 200 Other Goals up/down 1 step using FWW SBA Days to Meet Goals 5 Frequency of Treatment Frequency Of Treatment Twice a Day Treatment Plan Physical Therapy Treatment Plan Bed Mobility Training,Transfer Training,Gait Training, Therapeutic Exercise,Balance Retraining,Post Op Education, Discharge Planning,Hot or Cold Pack,Neuromuscular Re-ed, Coordination Retraining,Manual Therapy Other Recommendations and Next Treatment ambulation, stair climbing, Focus caregiver training Recommendations To Nursing Amount of Assist Needed 1 Person Assist Discharge Recommendations PT Discharge Recommendations Home with Assistance,Home Health
--- NOTE | 2019-05-25 15:08 | CM.IDA ---
Initial DCP Assessment Note: Pt is a 73 yo female, resident of [place], now POD#1 from spinal surgery w/ Dr Villarreal PCP: Liya Flowers [facility], pt discussed in multidisciplinary rounds this morning. Therapy has cleared pt for return home w/family/supportive dtr to assist and pt has planned for home, Dr Villarreal indicates in daily prog note that pt is expected to DC home Tuesday. Attempted to meet w/pt and she was working w/therapy team. No needs expected from DC planning team although will remain available in case this changes before day of DC. KIKE Chaney
[2019-05-25 16:31] VITALS: BP 124/69; PULSE 58; RESP 20; TEMP 36.6; O2SAT 98
--- NOTE | 2019-05-25 16:40 | PT.IPTN ---
This is to certify that I have reviewed this documentation and is involved with this pt's care. 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) Surgery Performed Operation Date: 05/24/19 07:45 Actual Procedures p C45 anterior disectomy, C6 corpectomy, C4-7 anterior instrumentated fusion w/ bone graft - Herber Villarreal MD Physical Therapy Treatment Note M2 PT-IP Current Condition Start: 05/24/19 16:26 Freq: NEEDED Status: Active Protocol: Document 05/24/19 15:45 AB (Rec: 05/24/19 16:46 AB [id number]) Physical Therapy Current Condition Current Condition Evaluation Date 05/24/19 Treatment Diagnosis s/p C4-5 ACDF; C5-6 discectomies and C6 corpectomy ; difficulty in walking Onset Date 05/24/19 Precautions Cervical Spine Precautions Soft Collar for Comfort,No Heavy Lifting,Log Roll Other Precautions falls M3 PT-IP Subjective Start: 05/24/19 16:26 Freq: NEEDED Status: Active Protocol: Document 05/25/19 16:40 JG (Rec: 05/25/19 18:24 JG [id number]) Subjective Physical Therapy Visit Type Type Treatment Note Visit Start Time 16:40 Visit Stop Time 17:02 Total Visit Minutes 22 Notes Tx led by DALIA Daily, supervised by PT Heather. Pt's daughter present for treatment . Number of PANTOGRAPH I ENGRAVER Visits 0 Physical Therapy Visit Comments Patient Comments pt agreeable to do PT. Therapy Pain Assessment Pain When Pain Assessed At Rest Pain Present Pain Present Pain Reported Location Neck Intensity 2 Scale Used Numeric (1 - 10) Pain Management Techniques Distraction,Timing of Activity with Medications M4 PT-IP Mobility and Gait Start: 05/24/19 16:26 Freq: NEEDED Status: Active Protocol: Document 05/25/19 16:40 JG (Rec: 05/25/19 18:24 JG [id number]) PT-Transfer Assessment Sit to and From Stand Sit to and from Stand Standby Assistance,Use of Upper Extremities Equipment Transfer Assistive Device Gait Belt Orthotic/Prosthetic Devices or Brace: Yes Transfers Transfer Destination Chair,Toilet,Wheelchair Transfer Technique ambulated with FWW Transfer Ability Level of Assist Standby Assistance,Use of Upper Extremities Comments Mobility Comments Pt required no more than SBA for mobility Gait Assessment Gait Gait Assistance Required: Standby Assistance,Contact Guard Assist Distance (Feet) 300 Able to Maintain Weight Bearing Status Yes During Gait Assistive Devices Assistive Device Gait Belt,Front Wheeled Walker Orthotic/Prosthetic Devices or Brace: Yes Gait Deviations General Gait Pattern Antalgic,Decreased Stride Length,Decreased Feet Clearance,Lateral Trunk Lean Factors Limiting Gait Function Factors Limiting Gait Function Decreased Activity Tolerance, Decreased Strength,Limited Range of Motion,Pain,Poor Balance,Poor Safety Awareness Comments Gait Comments Attempted ambulation without AD within room. Pt required CGA for safety and mod cuing to slow down, especially when turning. Pt ambulated with increased limp and decreased stability without AD compared to with FWW. Educated pt and caregiver on benefit of using FWW for improve safety at home and pt/caregiver agreed. Educated caregiver to help cue pt on safety during ambulation with FWW. Pt ambulated with FWW SBA to stairs to complete stair training. Caregiver able to frequently cue pt to slow down . Stair Climbing Assessment Evaluation Level of Assist On Stairs Contact Guard Assistance Devices Stair Climbing Assistive Devices Front Wheel Walker Technique/Endurance Stair Climbing Direction Ascend and Descend Stair Climbing Technique Step to Step Number of Steps Climbed 1 Stair Climbing Set # Repetitions (reps) 3 Comments Stair Climbing Comments Initial round of stair climbing completed CGA with SPT. Educated pt to walk all the way to edge of step prior to moving walker. Pt required no more than CGA as well as assist to brace walker for improved stability. Pt completed next two rounds of stairs with caregiver assist. Also educated pt on using up with the good, down with the bad as pt notes that her R leg is weaker than her L. Pt and caregiver demonstrated good safety and communication with stair climbing. PT-Balance Assessment Sitting Balance and Reactions Static Sitting Balance Ability Good Dynamic Sitting Balance Ability Good Standing Balance and Reactions Static Standing Balance Ability Fair Dynamic Standing Balance Ability Fair Device Used fair with FWW, poor without AD M5 PT-IP Objective Assessments Start: 05/24/19 16:26 Freq: NEEDED Status: Active Protocol: Document 05/24/19 15:45 AB (Rec: 05/24/19 16:46 AB [id number]) Orientation Orientation/Cognition Level of Alertness Alert Orientation Name,Place,Situation Language Function Ability No Deficits Noted Safety Awareness Decreased Safety Awareness Gross Range of Motion Lower Extremity ROM Assessment Within Functional Limits Strength Lower Extremity Strength Hip 4-/5 Knee 4-/5 Muscle Tone Muscle Tone WNL Yes M6 PT-IP Treatment Start: 05/24/19 16:26 Freq: NEEDED Status: Active Protocol: Document 05/25/19 16:40 JG (Rec: 05/25/19 18:24 JG [id number]) Physical Therapy Treatment Education Education Provided Safety M7 PT-IP Assessment and Plan Start: 05/24/19 16:26 Freq: NEEDED Status: Active Protocol: Document 05/25/19 16:40 [id number] (Rec: 05/25/19 18:24 JG [id number]) PT Summary Assessment and Plan Potential Rehabilitation Potential Good Summary Impairments Pain,ROM,Strength,Balance, Coordination,Sensation, Cognition,Bed Mobility, Transfers,Gait,Activity Tolerance Progress Towards Goals Progressing Toward Goals Assessment Summary Pt required no more than CGA for all mobility, ambulation with FWW, and stair climbing. Completed caregiver training and caregiver demonstrates good safety awareness. Pt cont to require frequent cuing for safety. Will cont to assess progress. Goals Bed Mobility Goal Independent Transfer Goal Independent,Front Wheeled Walker Gait Goal Independent,Front Wheel Walker Gait Distance 200 Other Goals up/down 1 step using FWW SBA Days to Meet Goals 5 Frequency of Treatment Frequency Of Treatment Twice a Day Treatment Plan Physical Therapy Treatment Plan Bed Mobility Training,Transfer Training,Gait Training, Therapeutic Exercise,Balance Retraining,Post Op Education, Discharge Planning,Hot or Cold Pack,Neuromuscular Re-ed, Coordination Retraining,Manual Therapy Other Recommendations and Next Treatment ambulation, stair climbing, Focus caregiver training Recommendations To Nursing Amount of Assist Needed 1 Person Assist Discharge Recommendations PT Discharge Recommendations Home with Assistance,Home Health
[2019-05-25 21:01] VITALS: BP 108/66; PULSE 69; RESP 22; TEMP 36.7; O2SAT 96
[2019-05-25] MEDS: SENNOSIDES 8.6 MG TABLET 17.2 MG PO (21:14)
[2019-05-25] MEDS: GABAPENTIN 300 MG CAPSULE PO (21:14)
[2019-05-25] MEDS: AMLODIPINE 2.5 MG TABLET PO (21:14)
[2019-05-25] MEDS: LOVASTATIN 20 MG TABLET PO (21:14)
[2019-05-25] MEDS: ZOLPIDEM 5 MG TABLET PO (21:18)
[2019-05-26 08:50] VITALS: BP 141/74; PULSE 71; O2SAT 97
--- NOTE | 2019-05-26 09:00 | OT.IP.TRT ---
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) Surgery Performed Operation Date: 05/24/19 07:45 Actual Procedures p C45 anterior disectomy, C6 corpectomy, C4-7 anterior instrumentated fusion w/ bone graft - Herber Villarreal MD Occupational Therapy Treatment Note M2 OT-IP Current Condition Start: 05/25/19 08:53 Freq: Status: Active Protocol: Document 05/25/19 08:54 [facility] (Rec: 05/25/19 09:11 [facility] [id number]) Occupational Therapy Current Condition Current Condition Evaluation Date 05/25/19 Treatment Diagnosis s/p C4-5, ACDF, C5-6 discectomy and C6 coprectomy Diagnosis Onset Date 05/24/19 Post Operative Precautions Cervical Spine Precautions Soft Collar for Comfort,No Heavy Lifting,Log Roll Weight Bearing Status Weight Bearing Status Weight Bear as Tolerated M3 OT- IP Subjective and Pain Start: 05/25/19 08:53 Freq: Status: Active Protocol: Document 05/26/19 09:06 [facility] (Rec: 05/26/19 09:18 [facility] [id number]) OT- Subjective Occupational Therapy Visit Type Type Treatment Note Visit Start Time 08:21 Visit Stop Time 09:06 Total Visit Minutes 45 Occupational Therapy Visit Comments Patient Comments Pt wanting to shower. Patient/Caregiver Goals Pt wanting to go home today. OT Pain Assessment Pain When Pain Assessed At Rest Pain Present Pain Present Denied Pain M4 OT- IP ADL's Start: 05/25/19 08:53 Freq: Status: Active Protocol: Document 05/26/19 09:06 [facility] (Rec: 05/26/19 09:18 [facility] [id number]) OT [id number] General Evaluation Self-Feeding Ability Independent OT ADL-Dressing General Eval Lower Body Dressing Ability Standby Assistance Areas Needing Assistance Underpants/Brief,Socks Comments OT Dressing Comments Pt able to cross her legs over to amanda/doff brief/pants. OT ADL-Bathing Bathing Type Bathing Type Shower General Evaluation Bathing Ability Contact Guard Assistance Devices Bathing Equipment Hand Held Shower Sprayer, Shower Chair with Arms,Grab Bars Comments OT Bathing Comments Pt wanting to wash her hair initially and not wanting to get the soft collar wet, and wanted to take it off for the shower . Per nursing okay to take off collar for the shower.Pt able to stand for the shower but a bit unsteady and suggested best to sit down for showering needs. M5 OT- IP IADL's Start: 05/25/19 08:53 Freq: Status: Active Protocol: Document 05/25/19 08:54 [facility] (Rec: 05/25/19 09:11 [facility] [id number]) OT-Instrumental Activities of Daily Living Home Safety Awareness Awareness of Need for Assistance at Home Good Awareness Medication Management Medication Management No Deficits Identified Money Management Money Management No Deficits Identified Meal Preparation Meal Preparation Comments Pt's daughter will assist at home. Hybrid Tester Hybrid Tester Caregiver Provides Assist M6 OT- IP Functional Cognition Start: 05/25/19 08:53 Freq: Status: Active Protocol: Document 05/26/19 09:06 [facility] (Rec: 05/26/19 09:18 [facility] [id number]) Cognitive Factors Limiting Selfcare Function Cognitive Ability Level of Alertness Alert Patient Orientation Name,Age,Birthday,Month,Date, Year,Day of Week,Place, Situation Attention Span Ability Capable of Focused Attention, Capable of Sustained Attention Ability to Follow Commands Able to Follow One Step Commands Memory Description Short Term Impaired Safety Awareness Underestimates Need for Assistance Problem Solving Ability Needs Assist to Identify Solutions Cognitive Comments Cognitive Assessment Comments Today noted decreased safety awareness and not remembering that PT had suggested pt use the FWW at all timed due to unsteadiness on her feet. M7 OT- IP Mobility and Balance Start: 05/25/19 08:53 Freq: Status: Active Protocol: Document 05/26/19 09:06 [facility] (Rec: 05/26/19 09:18 [facility] [id number]) OT- Bed Mobility Assessment Supine to Sit Supine to Sit Assist Standby Assistance OT-Transfer Assessment Sit to and From Stand Sit to and from Stand Standby Assistance Transfers Transfer Ability Contact Guard Assistance Technique Transfer Destination Bed,Chair,Shower Stall Devices Transfer Assistive Devices Gait Belt,Front Wheeled Walker Comments Mobility Comments CGA as pt insistent able to walk without the FWW. Pt unsteady on her feet without the FWW and best to use FWW at this time. OT- Balance Assessment Sitting Balance and Reactions Static Sitting Balance Ability Normal Dynamic Sitting Balance Ability Normal Standing Balance and Reactions Static Standing Balance Ability Good Dynamic Standing Balance Ability Fair M8 OT- IP Objective Assessments Start: 05/25/19 08:53 Freq: Status: Active Protocol: Document 05/25/19 08:54 [facility] (Rec: 05/25/19 09:11 [facility] [id number]) OT Gross Range of Motion Upper Extremity Range of Motion Assessment Within Functional Limits OT Strength Upper Extremity Strength Assessment Within Functional Limits M9 OT- IP Assessment and Plan Start: 05/25/19 08:53 Freq: Status: Active Protocol: Document 05/26/19 09:06 [facility] (Rec: 05/26/19 09:18 [facility] [id number]) OT Summary Assessment and Plan Potential Rehabilitation Potential Good Analytic Complexity at Evaluation Low Summary OT Impairments Functional Cognition, Functional Mobility,Dressing, Toileting,Bathing,Toilet Transfers,Shower Transfers Progress Towards Goals Progressing Toward Goals Assessment Summary Noted decreased safety awareness today and problem solving today and needing assist for safety for showering. Pt forgetting to take off brief before the shower. Pt's daughter to stay with her in the evening and night at home upon discharge. Goals Grooming Goal Independent Dressing Goal Independent Toileting Goal Independent Bathing Goal Standby Assistance Toilet Transfer Goal Independent Shower Transfer Goal Standby Assistance Patient/Caregiver Education Goal Demonstrate Post-Op Precautions,Caregiver Independent Assisting Patient Days to Meet Goals 1 Frequency of Treatment Frequency Of Treatment Once a Day Treatment Plan OT Treatment Plan ADL Training,Functional Mobility,Patient/Family Education,Discharge Planning Discharge Recommendations OT Discharge Recommendations Home with Assistance
--- NOTE | 2019-05-26 09:30 | PT.IPTN ---
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) Surgery Performed Operation Date: 05/24/19 07:45 Actual Procedures p C45 anterior disectomy, C6 corpectomy, C4-7 anterior instrumentated fusion w/ bone graft - Herber Villarreal MD Physical Therapy Treatment Note M2 PT-IP Current Condition Start: 05/24/19 16:26 Freq: NEEDED Status: Discharge Protocol: Document 05/24/19 15:45 AB (Rec: 05/24/19 16:46 AB [id number]) Physical Therapy Current Condition Current Condition Evaluation Date 05/24/19 Treatment Diagnosis s/p C4-5 ACDF; C5-6 discectomies and C6 corpectomy ; difficulty in walking Onset Date 05/24/19 Precautions Cervical Spine Precautions Soft Collar for Comfort,No Heavy Lifting,Log Roll Other Precautions falls M3 PT-IP Subjective Start: 05/24/19 16:26 Freq: NEEDED Status: Discharge Protocol: Document 05/26/19 09:30 AB (Rec: 05/26/19 13:00 AB [id number]) Subjective Physical Therapy Visit Type Type Treatment Note Visit Start Time 09:30 Visit Stop Time 09:45 Total Visit Minutes 15 Number of RAILROAD WHEELS AND AXLES INSPECTOR Visits 0 Physical Therapy Visit Comments Patient Comments pt agreeable to do PT Patient Goals to go home Therapy Pain Assessment Pain When Pain Assessed At Rest Pain Present Pain Present Pain Reported Location Neck Intensity 3 Scale Used Numeric (1 - 10) Pain Management Techniques Re-positioning,Timing of Activity with Medications M4 PT-IP Mobility and Gait Start: 05/24/19 16:26 Freq: NEEDED Status: Discharge Protocol: Document 05/26/19 09:30 AB (Rec: 05/26/19 13:00 AB [id number]) PT-Bed Mobility Assessment Supine to Sit Supine to Sit Standby Assistance Sit to Supine Sit to Supine Standby Assistance Scooting Scooting to Edge of Bed Standby Assistance Scooting Up and Down in Bed Standby Assistance PT-Transfer Assessment Sit to and From Stand Sit to and from Stand Standby Assistance Equipment Transfer Assistive Device None,Gait Belt Orthotic/Prosthetic Devices or Brace: Yes Transfers Transfer Destination Chair Transfer Technique ambulated without AD Transfer Ability Level of Assist Contact Guard Assistance, Minimal Assistance,1 Person Assistance Gait Assessment Gait Gait Assistance Required: Minimum Assistance Distance (Feet) 200 Able to Maintain Weight Bearing Status Yes During Gait Assistive Devices Assistive Device None,Gait Belt Orthotic/Prosthetic Devices or Brace: Yes Gait Deviations General Gait Pattern Antalgic,Decreased Stride Length,Decreased Feet Clearance Factors Limiting Gait Function Factors Limiting Gait Function Decreased Strength,Limited Range of Motion,Pain,Poor Balance,Poor Safety Awareness Comments Gait Comments ambulated without AD; presents with antalgic gait. educated pt on recommendation of continued use of FWW at home for safety. daughter present as well. pt and daughter understood. M5 PT-IP Objective Assessments Start: 05/24/19 16:26 Freq: NEEDED Status: Discharge Protocol: Document 05/24/19 15:45 AB (Rec: 05/24/19 16:46 AB [id number]) Orientation Orientation/Cognition Level of Alertness Alert Orientation Name,Place,Situation Language Function Ability No Deficits Noted Safety Awareness Decreased Safety Awareness Gross Range of Motion Lower Extremity ROM Assessment Within Functional Limits Strength Lower Extremity Strength Hip 4-/5 Knee 4-/5 Muscle Tone Muscle Tone WNL Yes M6 PT-IP Treatment Start: 05/24/19 16:26 Freq: NEEDED Status: Discharge Protocol: Document 05/26/19 09:30 AB (Rec: 05/26/19 13:00 AB [id number]) Physical Therapy Treatment Education Education Provided Precautions,Safety M7 PT-IP Assessment and Plan Start: 05/24/19 16:26 Freq: NEEDED Status: Discharge Protocol: Document 05/26/19 09:30 AB (Rec: 05/26/19 13:00 AB [id number]) PT Summary Assessment and Plan Potential Rehabilitation Potential Good Summary Impairments Pain,ROM,Strength,Balance, Coordination,Sensation,Tone, Cognition,Bed Mobility, Transfers,Gait,Activity Tolerance Progress Towards Goals Progressing Toward Goals Assessment Summary pt progressing with mobility. continues to be unsteady with ambulation without AD and educated on safety and continued use of FWW. pt and daughter agreed. pt may go home when medically stable. Goals Bed Mobility Goal Independent Transfer Goal Independent,Front Wheeled Walker Gait Goal Independent,Front Wheel Walker Gait Distance 200 Other Goals up/down 1 step using FWW SBA Days to Meet Goals 5 Frequency of Treatment Frequency Of Treatment Twice a Day Treatment Plan Physical Therapy Treatment Plan Bed Mobility Training,Transfer Training,Gait Training, Therapeutic Exercise,Balance Retraining,Post Op Education, Discharge Planning,Hot or Cold Pack,Neuromuscular Re-ed, Coordination Retraining,Manual Therapy Other Recommendations and Next Treatment ambulation, stair climbing, Focus caregiver training Recommendations To Nursing Amount of Assist Needed 1 Person Assist Discharge Recommendations PT Discharge Recommendations Home with Assistance,Home Health
--- NOTE | 2019-05-26 10:08 | PM.DS.1 ---
History of Present Illness History of Present Illness Date Patient Seen: 05/26/19 Time Patient Seen: 10:09 Chief complaint: [id number] Cervical Fusion Narrative: Please see HPI previously recorded in chart. Discharge Providers Provider Date of admission: 05/24/19 06:07 Discharge Date: 05/26/19 Primary care physician: Liya Flowers PA-C Consults: 05/24/19 13:01 Consult to Occupational Therapy Evaluate & Treat Comment: Physician Instructions: Evaluate and treat Consult to Physical Therapy Evaluate & Treat Comment: Physician Instructions: Evaluate and Treat Discharge provider: Erika Jensen PA-C Summary Hospital Course Discharge Diagnosis: s/p C4-5 anterior cervical diskectomy and fusion, C6 corpectomy with C5-6 and C6-7 diskectomies Hospital Course: [age] year old female with progressive myelopathy with severe cervical stenosis. She had failed conservative management and requested operative intervention. Risks and benefits of surgery were discussed and appropriate consents were obtained. After obtaining informed consent patient was taken to the operating room where she underwent C4-5 anterior cervical diskectomy and fusion C6 corpectomy with C5-6 and C6-[address] Villarreal. She tolerated this well without complications. Post operatively pain has been minimal and well controlled. She has mobilized with physical therapy. Drain was placed during operation with progressively lessening output, 10cc overnight with 2 cc last shift on POD #4. Drain removed prior to discharge. She is being discharged with supply of Tenafly, Celebrex, and Docusate. Follow up as scheduled in 1.5 weeks. Status at Discharge Cognitive/behavioral status at discharge: oriented Overall status at discharge: patient is progressing back to baseline Exam Vital Signs (past 8 hours): - 05/26/19 08:50 Pulse Rate 71 Blood Pressure 141/74 H Pulse Oximetry 97 Oxygen Delivery Method Room Air Oxygen Flow Rate 0 Narrative Exam Narrative: Pleasant 73 year old female resting comfortably in chair. Alert and oriented in no acute distress. Dressing is CDI. Drain in place with 2cc in reservoir. 5/5 motor both upper extremities except for unchanged 4/5 plastic surgery technician and hand intrinsics. Discharge Plan Discharge Plan Patient Disposition: Home Discharge comment: f/u 1.5 wks Discharge orders & Medications Prescriptions: New celecoxib [Celebrex] 200 mg Capsule 200 mg PO BID PRN (Reason: pain) Qty: 60 RF: 0 docusate sodium [DOK] 100 mg Capsule 100 mg PO BID PRN (Reason: constipation) Qty: 20 RF: 0 hydrocodone-acetaminophen 5-325 mg Tablet 1 tab PO Q4HR PRN (Reason: Pain, Moderate (4-6)) Qty: 20 RF: 0 Continued amlodipine 2.5 mg Tablet 2.5 mg PO BEDTIME RF: 0 aspirin 81 mg Tablet,Delayed Release (Dr/Ec) 81 mg PO DAILY RF: 0 lovastatin 20 mg Tablet 20 mg PO BEDTIME RF: 0 zolpidem 10 mg Tablet 5 mg PO BEDTIME PRN (Reason: Sleep) RF: 0 Follow up/Referrals: Liya Flowers PA-C [Primary Care Provider] - Discharge Health Status Multidrug resistant organism: No MDRO Diet/Activity/Treatments Diet: Diet as Tolerated Activity: 10 lbs max lift, soft collar for comfort Skin/Wound/Dressing Care Report to your healthcare provider any signs of infection, such as:: chills, fever, night sweats, increased pain, unusual drainage and unusual redness Dressing: may change dressing and shower POD#5 Visit Report/Discharge Packet Instructions: Celecoxib, Hydrocodone Stand Alone Forms: Surgery Discharge Visit Report Forms: Patient Portal/API, Stroke Signs & Symptoms Discharge Data Primary Care Provider: Liya Flowers
[2019-05-26] MEDS: CELECOXIB 200 MG CAPSULE PO (10:13)
[2019-05-26] MEDS: ASPIRIN EC 81 MG TABLET PO (10:13)
[2019-05-26] MEDS: DOCUSATE 100 MG CAPSULE PO (10:13)
[2019-05-26] MEDS: SODIUM CHLORIDE 0.9% FLUSH 10 ML IV (10:13)
--- NOTE | 2019-05-26 12:49 | PC.NURSE ---
Discharge: Late entry (left approx 1045) IV dc'd intact. ROXANN drain removed intact with good hemostasis. Steri-strip placed over insertion site (per direction from ANTONIETA Jensen) then covered with gauze and tegaderm. Large dressing to anterior neck C/D/I at discharge, no erythema to surrounding skin. Sent with extra Tegaderm and gauze for dressing changes (if needed). Dr Villarreal had written a script for Celebrex PRN pain, but when tried to call in was told patient's insurance won't cover this medication. Spoke with Dr Sutton re: the same and she said to have patient continue with Tylenol as needed (advised of 24 hour max) and also Ibuprofen as needed. Sent with hard script for Vicodin. Reviewed all d/c instructions thoroughly with patient and daughter- they verbalized understanding of instructions and stated no further questions. All personal belongings sent with patient at d/c. Wheeled out to private vehicle by nursing staff.
== END 2019-05-26 12:55 | disposition home or self-care (01) | DRG 472 ==
PROVIDERS: Admitting Provider Orthopaedic Surgery; PCP Physician Assistant; Visit Provider Orthopaedic Surgery
PROC: 0RG10A0 Fusion of Cervical Vertebral Joint with Interbody Fusion Device, Anterior Approach, Anterior Column, Open Approach (ICD-10-PCS; principal; 2019-05-24 07:45)
DX: M48.02 Spinal stenosis, cervical region (principal); M50.021 Cervical disc disorder at C4-C5 level with myelopathy; I10 Essential (primary) hypertension; E66.9 Obesity, unspecified; Z68.37 Body mass index [BMI] 37.0-37.9, adult
CPT/HCPCS: 72040; 76000; 97116; 97162; 97165; 97530; 97535; C1776; J0330; J0690; J1100; J1170; J2405; J2704; J3010

== ENCOUNTER 2019-07-26 05:53 | Day surgery (SDC) | payer MEDICARE, SELFPAY ==
[2019-05-24 13:28] VITALS: BMI 37.2
[2019-07-26 07:11] VITALS: BP 147/79; PULSE 66; RESP 15; TEMP 36.3; O2SAT 98; BMI 37.7
[2019-07-26] MEDS: PROPARACAINE 0.5% OPHTH SOL 2 DROPS EYE-OP (07:15)
[2019-07-26] MEDS: CATARACT EYE COMPOUND (10 DROPS/SYRINGE) 3 DROPS EYE-OP (07:20)
--- NOTE | 2019-07-26 07:23 | PM.PREOP ---
Pre-operative Note Interval Note History & Physical reviewed/Exam performed by Physician: Yes Changes to H&P: No
--- NOTE | 2019-07-26 07:32 | SUR.OPER ---
Supine on eye stretcher, head on extension cradle secured with tape. Arms tucked at sides with blanket. Pillow under knees.
[2019-07-26] MEDS: BALANCED SALT IRRIG SOLN NO.2 15 ML 5 ML IRR (07:57)
[2019-07-26] MEDS: CHONDROIDTIN/SOD HYALURONATE 1.05 ML SYRINGE INTRAOCULA (07:58)
[2019-07-26] MEDS: MOXIFLOXACIN INJ 5 MG/ML VIAL EYE-OP (07:58)
[2019-07-26] MEDS: PHENYLEPHRINE/LIDOCAINE VIAL (OR) 0.2 ML EYE-OP (07:59)
[2019-07-26] MEDS: TETRACAINE 0.5% OPHTH DROPS 4 ML 2 DROPS EYE-OP (07:59)
[2019-07-26] MEDS: BALANCED SALT IRRIG SOLN NO.2 500 ML, EPINEPHrine 1 MG IRR (08:01)
[2019-07-26] MEDS: LIDOCAINE 2% INJ SDV 2 ML INJ (08:01)
--- NOTE | 2019-07-26 08:18 | PM.OP.1 ---
Procedure & Clinicians Procedure: Cataract extraction with intraocular lens implant, right. Same procedure as scheduled: Yes Indications: Visually significant age related nuclear sclerosis, right Surgeon: Deandre Garcia Click Yes if Unassisted: Yes Anesthesia Type: MAC +/- Operative Notes Procedure in detail: The patient was brought to the operating suite. The correct patient, surgical site and lens were confirmed. 0.5 % tetracaine drops were placed in the right eye. The patient was prepped and draped in the typical sterile manner. A lid speculum was placed in the eye. 2% lidocaine was placed on the eye. A paracentesis port was created with a side-port blade. 0.1 mL of 1% preservative free lidocaine with phenylephrine was injected into the anterior chamber. Viscoelastic was injected into the anterior chamber. A 2.6mm keratome was used to create a clear corneal temporal incision. Cystotome and Utrata forceps were used to create a continuous curvilinear capsulorrhexis. Balanced salt solution was used to hydrodissect the nucleus. Phacoemulsification was used to remove the lens. The capsular bag was inflated with viscoelastic. A Farias ZCBOO +22.5D lens was inserted into the capsule. Viscoelastic was removed and the wound hydrated. The wound was found to be leak free and the eye was assessed to be at normal physiologic pressure. 0.1mL Vigamox was injected into the anterior chamber. The lid speculum was removed and the patient left the operating room in excellent condition. Complications: none Post-operative Condition: stable Disposition: same day surgery
[2019-07-26 08:50] VITALS: BP 134/79; PULSE 64; RESP 14; TEMP 37.1; O2SAT 98
== END 2019-07-26 09:00 | disposition home or self-care (01) ==
PROVIDERS: Family Provider Physician Assistant; PCP Physician Assistant; Visit Provider Ophthalmology
PROC: (CPT 66984; principal; 2019-07-26 07:45)
DX: H25.11 Age-related nuclear cataract, right eye (principal); I10 Essential (primary) hypertension
CPT/HCPCS: 66984; J0171; J2250; J3010

== ENCOUNTER 2019-08-09 10:22 | Day surgery (SDC) | payer MEDICARE, SELFPAY ==
[2019-05-24 13:28] VITALS: BMI 37.2
[2019-08-09] MEDS: PROPARACAINE 0.5% OPHTH SOL 2 DROPS EYE-OP (10:37)
--- NOTE | 2019-08-09 10:37 | PM.PREOP ---
Pre-operative Note Interval Note History & Physical reviewed/Exam performed by Physician: Yes Changes to H&P: No
[2019-08-09 10:40] VITALS: BP 140/83; PULSE 81; RESP 18; TEMP 36.7; O2SAT 100
[2019-08-09] MEDS: CATARACT EYE COMPOUND (10 DROPS/SYRINGE) 3 DROPS EYE-OP (10:41)
[2019-08-09 10:42] VITALS: BMI 33.3
[2019-08-09] MEDS: TETRACAINE 0.5% OPHTH DROPS 4 ML 2 DROPS EYE-OP (11:17)
[2019-08-09] MEDS: BALANCED SALT IRRIG SOLN NO.2 15 ML 5 ML IRR (11:17)
[2019-08-09] MEDS: BALANCED SALT IRRIG SOLN NO.2 500 ML, EPINEPHrine 1 MG IRR (11:18)
[2019-08-09] MEDS: PHENYLEPHRINE/LIDOCAINE VIAL (OR) 0.2 ML EYE-OP (11:18)
[2019-08-09] MEDS: LIDOCAINE 2% INJ SDV 2 ML INJ (11:18)
[2019-08-09] MEDS: CHONDROIDTIN/SOD HYALURONATE 1.05 ML SYRINGE INTRAOCULA (11:19)
[2019-08-09] MEDS: MOXIFLOXACIN INJ 5 MG/ML VIAL EYE-OP (11:19)
--- NOTE | 2019-08-09 11:33 | PM.OP.1 ---
Procedure & Clinicians Procedure: Cataract extraction with intraocular lens implant, left. Same procedure as scheduled: Yes Indications: Visually significant age related nuclear sclerosis, right Surgeon: Deandre Garcia Click Yes if Unassisted: Yes Anesthesia Type: MAC +/- Operative Notes Procedure in detail: The patient was brought to the operating suite. The correct patient, surgical site and lens were confirmed. 0.5 % tetracaine drops were placed in the left eye. The patient was prepped and draped in the typical sterile manner. A lid speculum was placed in the eye. 2% lidocaine was placed on the eye. A paracentesis port was created with a side-port blade. 0.1 mL of 1% preservative free lidocaine with phenylephrine was injected into the anterior chamber. Viscoelastic was injected into the anterior chamber. A 2.6mm keratome was used to create a clear corneal temporal incision. Cystotome and Utrata forceps were used to create a continuous curvilinear capsulorrhexis. Balanced salt solution was used to hydrodissect the nucleus. Phacoemulsification was used to remove the lens. The capsular bag was inflated with viscoelastic. A Farias ZCBOO +23.5D lens was inserted into the capsule. Viscoelastic was removed and the wound hydrated. The wound was found to be leak free and the eye was assessed to be at normal physiologic pressure. 0.1mL Moxifloxacin (5mg/mL) preservative free was injected into the anterior chamber. The lid speculum was removed and the patient left the operating room in excellent condition. Complications: none Post-operative Condition: stable Disposition: same day surgery
[2019-08-09 11:37] VITALS: BP 126/69; PULSE 72; RESP 18; O2SAT 100
--- NOTE | 2019-08-09 11:46 | SUR.PHASEII ---
pt is ready to go home just waiting on her ride. pt had told her ride she would be ready at 12:30 but is ready now. Call placed to her ride.
== END 2019-08-09 12:15 | disposition home or self-care (01) ==
LOC: OR 10:24
PROVIDERS: Family Provider Physician Assistant; PCP Physician Assistant; Referring Provider Ophthalmology; Visit Provider Ophthalmology
PROC: (CPT 66984; principal; 2019-08-09 11:30)
DX: H25.12 Age-related nuclear cataract, left eye (principal)
CPT/HCPCS: 66984; J0171; J2250; J3010

== ENCOUNTER → 2020-03-08 15:41 | Outpatient (CLI) | payer MEDICARE, SELFPAY ==
[2020-02-28 13:46] VITALS: BMI 37.2
--- NOTE | 2020-03-08 16:09 | DI.MG.S_ITS ---
Patient Name: KRISTEN LAINEZ date: 1945 Sex: F Attending Physician: Kristie Indications: Date: 03/08/2020 16:19 At the request of: JENNY FELICIANO Procedure: MM screening mammo BI BILATERAL DIGITAL SCREENING MAMMOGRAM 3D/2D WITH CAD: 03/08/2020 CLINICAL: Routine screening. Comparison is made to exams dated: 09/02/2018 mammogram, 08/05/2017 mammogram, and 07/22/2016 mammogram - [facility]. There are scattered fibroglandular elements in both breasts. Current study was also evaluated with a Computer Aided Detection (CAD) system. There are benign calcifications in the right breast. No significant masses, calcifications, or other findings are seen in either breast. There has been no significant interval change. IMPRESSION: BENIGN There is no mammographic evidence of malignancy. A 1 year screening mammogram is recommended. This exam was interpreted at Station ID: [id number]. NOTE: For mammograms, a report in lay terms will be sent to the patient. Approximately 15% of breast malignancies will not be visualized mammographically. In the management of a palpable breast mass, a negative mammogram must not discourage biopsy of a clinically suspicious lesion. Electronically Signed By: Earl burroughs/maury:03/11/2020 08:35:11 letter sent: Normal Exam ACR BI-RADS Category 2: Benign Finding(s) 3342F
== END ==
PROVIDERS: Family Provider Physician Assistant; PCP Physician Assistant; Referring Provider Physician Assistant; Visit Provider Physician Assistant
DX: Z12.31 Encounter for screening mammogram for malignant neoplasm of breast (principal)
CPT/HCPCS: 77063; 77067

== ENCOUNTER → 2021-03-21 09:02 | Outpatient (CLI) | payer MEDICARE, SELFPAY ==
[2020-02-28 13:46] VITALS: BMI 37.2
--- NOTE | 2021-03-21 | DI.MG.S_ITS ---
BILATERAL DIGITAL SCREENING MAMMOGRAM 3D/2D WITH CAD: 03/21/2021 CLINICAL: Routine screening. Family history of breast cancer. Comparison is made to exams dated: 03/08/2020 mammogram, 09/02/2018 mammogram, and 08/05/2017 mammogram - [facility]. There are scattered fibroglandular elements in both breasts. Current study was also evaluated with a Computer Aided Detection (CAD) system. There are benign calcifications in the right breast. No significant masses, calcifications, or other findings are seen in either breast. There has been no significant interval change. IMPRESSION: BENIGN There is no mammographic evidence of malignancy. A 1 year screening mammogram is recommended. This exam was interpreted at Station ID: [id number]. NOTE: For mammograms, a report in lay terms will be sent to the patient. Approximately 15% of breast malignancies will not be visualized mammographically. In the management of a palpable breast mass, a negative mammogram must not discourage biopsy of a clinically suspicious lesion. Electronically Signed By: Kishan Fox acr/maury:03/23/2021 07:37:31 letter sent: Normal Exam ACR BI-RADS Category 2: Benign Finding(s) 3342F
== END ==
PROVIDERS: Family Provider Physician Assistant; PCP Physician Assistant; Referring Provider Physician Assistant; Visit Provider Physician Assistant
DX: Z12.31 Encounter for screening mammogram for malignant neoplasm of breast (principal)
CPT/HCPCS: 77063; 77067

== ENCOUNTER → 2021-08-07 10:40 | Outpatient (CLI) | payer MEDICARE, SELFPAY ==
[2020-02-28 13:46] VITALS: BMI 37.2
--- NOTE | 2021-08-07 | DI.CT.S_ITS ---
PROCEDURE: CT CHEST WO CON INDICATIONS: Other nonspecific abnormal finding of lung field TECHNIQUE: Noncontrast 5 mm thick sections acquired from the pulmonary apices to the posterior costophrenic angles. 1 mm lung window, 5 mm thick coronal and sagittal and 7 mm axial MIP reformats were then acquired. For radiation dose reduction, the following was used: automated exposure control, adjustment of mA and/or kV according to patient size. COMPARISON: [facility], , CT CALCIUM SCORING, 07/23/2021, 13:21. FINDINGS: Image quality: Excellent. Lungs and pleura: No acute air space opacities or consolidations. Previously seen 1.6 cm ground-glass opacity in the superior segment of the left lower lobe is no longer visualized and likely represented atelectasis. No pleural effusions or pneumothorax. Central and peripheral airways are patent and normal in caliber. Mediastinum: Heart size is normal. Coronary atherosclerosis is visualized. No pericardial effusion. No mediastinal adenopathy by size criteria. Thoracic aorta and central pulmonary arteries are normal in size. Esophagus is mildly patulous. Moderate hiatal hernia. Bones and chest wall: No suspicious bony lesions. No acute vertebral body compression fractures. No axillary or supraclavicular adenopathy by size criteria. Thyroid gland is unremarkable . Abdomen: Gastric lap band is noted. Visualized upper abdominal solid organs and bowel loops appear normal in the absence of contrast. IMPRESSION: Previously seen 1.6 cm ground-glass opacity in the superior segment of the left lower lobe is no longer visualized and likely represent atelectasis or other acute inflammatory/infectious process which has since resolved. Otherwise, no acute cardiopulmonary abnormalities. No focal consolidations. No suspicious pulmonary nodules or masses. Other chronic findings as above. Dictated by: Fam Burr M.D. on 08/07/2021 at 14:03 Approved by: Fam Burr M.D. on 08/07/2021 at 14:13
== END ==
PROVIDERS: Family Provider Physician Assistant; PCP Physician Assistant; Referring Provider Internal Medicine; Visit Provider Internal Medicine
DX: R91.8 Other nonspecific abnormal finding of lung field (principal); I25.10 Atherosclerotic heart disease of native coronary artery without angina pectoris; Z98.84 Bariatric surgery status
CPT/HCPCS: 71250

== ENCOUNTER → 2022-03-26 14:00 | Outpatient (CLI) | payer MEDICARE, SELFPAY ==
[2020-02-28 13:46] VITALS: BMI 37.2
--- NOTE | 2022-03-26 | DI.MG.S_ITS ---
BILATERAL DIGITAL SCREENING MAMMOGRAM 3D/2D WITH CAD: 03/26/2022 CLINICAL: Routine screening. Family history of breast cancer. Comparison is made to exams dated: 03/21/2021 mammogram, 03/08/2020 mammogram, and 09/02/2018 mammogram - [facility]. There are scattered areas of fibroglandular density in both breasts (category b / 25%-50% glandular tissue). Current study was also evaluated with a Computer Aided Detection (CAD) system. There is a possible developing asymmetry with an obscured margin in the right breast middle depth lateral region seen on the craniocaudal view only. This is more prominent and increased in size. No other significant masses, calcifications, or other findings are seen in either breast. IMPRESSION: INCOMPLETE: NEEDS ADDITIONAL IMAGING EVALUATION The possible developing asymmetry in the right breast is indeterminate. Additional views with possible ultrasound are recommended. Based on the Tyrer Cuzick model (a risk assessment model) the patient's lifetime risk is 3.8% and her 10 year risk is 3.8%. According to the ACR, ACS, and NCCN guidelines, an annual breast MRI exam along with mammogram is recommended if the patient's lifetime risk is 20% or greater. This exam was interpreted at Station ID: [id number]. NOTE: For mammograms, a report in lay terms will be sent to the patient. Approximately 15% of breast malignancies will not be visualized mammographically. In the management of a palpable breast mass, a negative mammogram must not discourage biopsy of a clinically suspicious lesion. Electronically Signed By: Jame Crum M.D., jr/maury:03/29/2022 10:10:00 letter sent: Additional Imaging Needed ACR BI-RADS Category 0: Incomplete 3340F
== END ==
PROVIDERS: Family Provider Physician Assistant; PCP Internal Medicine; Referring Provider Internal Medicine; Visit Provider Internal Medicine
DX: Z12.31 Encounter for screening mammogram for malignant neoplasm of breast (principal); Z80.3 Family history of malignant neoplasm of breast
CPT/HCPCS: 77063; 77067

== ENCOUNTER → 2022-04-05 14:42 | Outpatient (CLI) | payer OTHER, SELFPAY ==
[2020-02-28 13:46] VITALS: BMI 37.2
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
--- NOTE | 2022-04-05 14:48 | DI.RAD.S_ITS ---
PROCEDURE: XR FOOT RT MIN 3V INDICATIONS: RIGHT FOOT PAIN TECHNIQUE: 3 views of the foot were acquired. COMPARISON: None. FINDINGS: Bones: Subtle minimally displaced fracture through base of 4th proximal phalanx is seen. Osteoarthritic changes are noted throughout right foot. No suspicious bony lesions. Well-defined plantar and dorsal calcaneal enthesophytes are seen. Soft tissues: No tibiotalar joint effusion. Achilles tendon appears normal. IMPRESSION: Minimally displaced fracture through 4th proximal phalangeal base. No other fracture or dislocation. Right foot joint osteoarthritis. Calcaneal enthesophytes. Dictated by: John Stevens M.D. on 04/05/2022 at 17:16 Approved by: John Stevens M.D. on 04/05/2022 at 17:18
== END ==
PROVIDERS: Family Provider Physician Assistant; PCP Internal Medicine; Referring Provider Internal Medicine; Visit Provider Internal Medicine
DX: S92.514A Nondisplaced fracture of proximal phalanx of right lesser toe(s), initial encounter for closed fracture (principal); G44.319 Acute post-traumatic headache, not intractable; M47.812 Spondylosis without myelopathy or radiculopathy, cervical region; M19.071 Primary osteoarthritis, right ankle and foot; M77.31 Calcaneal spur, right foot; M79.671 Pain in right foot; R20.0 Anesthesia of skin; R20.2 Paresthesia of skin; R29.898 Other symptoms and signs involving the musculoskeletal system; V49.50XA Passenger injured in collision with unspecified motor vehicles in traffic accident, initial encounter; Z98.1 Arthrodesis status
CPT/HCPCS: 70450; 72125; 73630

== ENCOUNTER → 2022-04-21 09:54 | Outpatient (CLI) | payer MEDICARE, SELFPAY ==
[2020-02-28 13:46] VITALS: BMI 37.2
--- NOTE | 2022-04-21 | DI.MG.S_ITS ---
UNILATERAL RIGHT DIGITAL DIAGNOSTIC MAMMOGRAM 3D/2D WITH ADDITIONAL VIEWS: 04/21/2022 CLINICAL: Additional evaluation requested from prior study. Comparison is made to exams dated: 03/26/2022 mammogram, 03/21/2021 mammogram, 03/08/2020 mammogram, 07/22/2016 mammogram, and 09/02/2018 mammogram - [facility]. There are scattered areas of fibroglandular density in the right breast (category b / 25%-50% glandular tissue). The possible developing asymmetry with an obscured margin in the right breast posterior depth lateral region seen on the craniocaudal view only is no longer seen and is consistent with fibroglandular tissue. This is not confirmed with additional views. This area appears stable compared to multiple prior years. No other significant masses or calcifications are seen in the breast. IMPRESSION: BENIGN Resolution of screening mammography abnormality with additional views. Stable appearance of tissue compared to priors. There is no mammographic evidence of malignancy. Return to annual mammogram screening schedule is recommended. Findings and recommendations were conveyed to the patient at time of exam. Based on the Tyrer Cuzick model (a risk assessment model) the patient's lifetime risk is 3.8% and her 10 year risk is 3.8%. According to the ACR, ACS, and NCCN guidelines, an annual breast MRI exam along with mammogram is recommended if the patient's lifetime risk is 20% or greater. This exam was interpreted at Station ID: [id number]. NOTE: For mammograms, a report in lay terms will be sent to the patient. Approximately 15% of breast malignancies will not be visualized mammographically. In the management of a palpable breast mass, a negative mammogram must not discourage biopsy of a clinically suspicious lesion. Electronically Signed By: Patria cantu/:04/21/2022 11:05:22 letter sent: Normal Exam ACR BI-RADS Category 2: Benign Finding(s) 3342F
== END ==
PROVIDERS: Family Provider Physician Assistant; PCP Internal Medicine; Referring Provider Internal Medicine; Visit Provider Internal Medicine
DX: R92.8 Other abnormal and inconclusive findings on diagnostic imaging of breast (principal)
CPT/HCPCS: 77065; G0279

== ENCOUNTER → 2022-09-24 11:44 | Outpatient (CLI) | payer OTHER, SELFPAY ==
[2020-02-28 13:46] VITALS: BMI 37.2
--- NOTE | 2022-09-24 | DI.RAD.S_ITS ---
Bone Density Report Name: KRISTEN LAINEZ Age: 77 Sex: Female Ethnicity: White Date of : 1945 Indication: postmenopausal; screening for osteoporosis; Referring Provider: VLAD FONSECA Study: Bone densitometry was performed. Exam Date: September 24, 2022 Accession number: [id number] Bone Density: Region BMD T-score Z-score Classification AP Spine(L1, L2, L3) 1.211 1.8 4.2 Normal Femoral Neck (Left) 0.709 -1.3 0.9 Osteopenia Total Hip (Left) 0.884 -0.5 1.4 Normal Femoral Neck (Right) 0.668 -1.6 0.5 Osteopenia Total Hip (Right) 0.864 -0.6 1.2 Normal Total Hip Mean 0.874 -0.6 1.3 Normal World Health Organization criteria for BMD impression classify patients as: Normal (T-score at or above -1.0), Osteopenia (T-score between -1.0 and -2.5), or Osteoporosis (T-score at or below -2.5). 10-year Fracture Risk(1): Major Osteoporotic Fracture 11% Hip Fracture 2.2% Reported Risk Factors: [place] (), Neck BMD=0.668, BMI=38.3 (1) FRAX(R) Version 3.08. Fracture probability calculated for an untreated patient. Fracture probability may be lower if the patient has received treatment. Impression: The patient has low bone mass, based on the Right Femoral Neck T-score. The patient has an estimated ten-year risk of hip fracture of 2.2% and an estimated ten-year risk of major fracture of 11%, based on the WHO FRAX algorithm. Discussion: BONE DENSITY IS LOW AT ONE OR MORE SKELETAL SITES. This patient's lowest T-score is low at one or more skeletal sites. It meets the World Health Organization's (WHO) criteria for low bone mass (T-score between -1.0 and -2.5). The patient's 10-year risk of fracture as calculated by FRAX is less than the threshold where pharmacological therapy is recommended by the National Osteoporosis Foundation (NOF). However, all treatment decisions require clinical judgment and consideration of individual patient factors, including patient preferences, comorbidities, previous drug use, risk factors not captured in the FRAX model (e.g., frailty, falls, vitamin D deficiency, increased bone turnover, interval significant decline in bone density) and possible under or overestimation of fracture risk by FRAX. The patient should follow a healthful lifestyle (good nutrition with adequate calcium and vitamin D, and appropriate weight-bearing exercise). Follow-Up: Consider repeating this study in 2 to 3 years to reassess this patient's status, or sooner if there is some new clinical indication. Reported by: SHANTANU PAUL M.D. on 09/24/2022 12:14:00 PM.
== END ==
PROVIDERS: Family Provider Physician Assistant; PCP Internal Medicine; Referring Provider Internal Medicine; Visit Provider Internal Medicine
DX: Z78.0 Asymptomatic menopausal state (principal); M85.88 Other specified disorders of bone density and structure, other site
CPT/HCPCS: 77080

== ENCOUNTER → 2023-03-30 07:35 | Outpatient (CLI) | payer OTHER, SELFPAY ==
[2020-02-28 13:46] VITALS: BMI 37.2
--- NOTE | 2023-03-30 | DI.MG.S_ITS ---
BILATERAL DIGITAL SCREENING MAMMOGRAM 3D/2D WITH CAD: 03/30/2023 CLINICAL: Routine screening. Comparison is made to exams dated: 03/26/2022 mammogram, 03/21/2021 mammogram, and 03/08/2020 mammogram - [facility]. There are scattered areas of fibroglandular density in both breasts (category b / 25%-50% glandular tissue). Current study was also evaluated with a Computer Aided Detection (CAD) system. No significant masses, calcifications, or other findings are seen in either breast. There has been no significant interval change. IMPRESSION: NEGATIVE There is no mammographic evidence of malignancy. A 1 year screening mammogram is recommended. Based on the Tyrer Cuzick model (a risk assessment model) the patient's lifetime risk is 3.5% and her 10 year risk is 0.0%. According to the ACR, ACS, and NCCN guidelines, an annual breast MRI exam along with mammogram is recommended if the patient's lifetime risk is 20% or greater. This exam was interpreted at Station ID: [id number]. NOTE: For mammograms, a report in lay terms will be sent to the patient. Approximately 15% of breast malignancies will not be visualized mammographically. In the management of a palpable breast mass, a negative mammogram must not discourage biopsy of a clinically suspicious lesion. Electronically Signed By: Earl burroughs/maury:03/30/2023 11:16:38 letter sent: Normal Exam ACR BI-RADS Category 1: Negative 3341F
== END ==
PROVIDERS: Family Provider Physician Assistant; PCP Internal Medicine; Referring Provider Internal Medicine; Visit Provider Internal Medicine
DX: Z12.31 Encounter for screening mammogram for malignant neoplasm of breast (principal)
CPT/HCPCS: 77063; 77067

== ENCOUNTER → 2024-04-12 09:12 | Outpatient (CLI) | payer MEDICARE, SELFPAY ==
[2020-02-28 13:46] VITALS: BMI 37.2
--- NOTE | 2024-04-12 09:15 | DI.MG.S_ITS ---
BILATERAL DIGITAL SCREENING MAMMOGRAM 3D/2D WITH CAD: 04/12/2024 CLINICAL: Routine screening. Comparison is made to exams dated: 03/30/2023 mammogram, 03/26/2022 mammogram, 03/21/2021 mammogram, and 03/08/2020 mammogram - [facility]. There are scattered areas of fibroglandular density (category b / 25%-50% glandular tissue). Current study was also evaluated with a Computer Aided Detection (CAD) system. No significant masses, calcifications, or other findings are seen in either breast. There has been no significant interval change. IMPRESSION: NEGATIVE There is no mammographic evidence of malignancy. A 1 year screening mammogram is recommended. Based on the Tyrer Cuzick model (a risk assessment model) the patient's lifetime risk is 3.2% and her 10 year risk is 0.0%. According to the ACR, ACS, and NCCN guidelines, an annual breast MRI exam along with mammogram is recommended if the patient's lifetime risk is 20% or greater. This exam was interpreted at Station ID: [id number]. NOTE: For mammograms, a report in lay terms will be sent to the patient. Approximately 15% of breast malignancies will not be visualized mammographically. In the management of a palpable breast mass, a negative mammogram must not discourage biopsy of a clinically suspicious lesion. Electronically Signed By: Andreas bautista/maury:04/12/2024 13:39:50 letter sent: Normal Exam ACR BI-RADS Category 1: Negative
== END ==
PROVIDERS: Family Provider Physician Assistant; PCP Internal Medicine; Referring Provider Internal Medicine; Visit Provider Internal Medicine
DX: Z12.31 Encounter for screening mammogram for malignant neoplasm of breast (principal)
CPT/HCPCS: 77063; 77067

== ENCOUNTER 2024-04-25 16:55 | Emergency (ER) | payer MEDICARE, SELFPAY ==
[2020-02-28 13:46] VITALS: BMI 37.2
[2024-04-25] VITALS (13 sets, daily range): BP systolic 122–154; BP diastolic 56–76; PULSE 59–70; RESP 17–18; TEMP 36.6–37; O2SAT 92–100; BMI 35.5
[2024-04-25] MEDS: TET,DIPH,PERTUSS(ACELL),VAC/PF 0.5 ML SYRINGE IM (22:12)
--- NOTE | 2024-04-25 22:39 | ED_ITS ---
HPI - Wound/Laceration General Chief Complaint: Wound/Laceration Stated Complaint: cut left thumb Time Seen by Provider: 04/25/24 20:48 Source: patient Mode of arrival: Ambulatory History of Present Illness HPI narrative: 78-year-old female had ground level fall earlier 10:00 a.m. this morning, struck left frontal forehead area, no loss of consciousness, no visual changes, no nausea or vomiting. No weakness to face arm or leg. Also had injury laceration to left thumb, sustaining a laceration, no gross deformity. No other injuries Related Data Home Medications Medication Instructions Recorded Confirmed amlodipine 2.5 mg tablet 2.5 mg PO BEDTIME 05/23/19 08/09/19 aspirin 81 mg tablet,delayed 81 mg PO DAILY 05/23/19 08/09/19 release lovastatin 20 mg tablet 20 mg PO BEDTIME 05/23/19 08/09/19 Allergies Allergy/AdvReac Type Severity Reaction Status Date / Time No Known Drug Allergies Allergy Verified 04/25/24 17:38 Patient History Medical History (Updated 04/25/24 @ 22:44 by Santiago Bryant MD) Arthritis Low back pain Neck pain Numbness and tingling Spinal stenosis HLD (hyperlipidemia) HTN (hypertension) Surgical History (Updated 05/23/19 @ 08:11 by Avril Barraza RN) Hx of tonsillectomy Hx of tubal ligation H/O: hysterectomy Hx of bariatric surgery (~2008) Hx of cholecystectomy Social History household members: none Smoking Status: Never smoker alcohol intake: current Smoking Status: Never smoker alcohol intake frequency: a few times a month Substance Use Type: does not use Exam Narrative Exam Narrative: GENERAL: Well-developed patient, in mild distress. HEAD: Left forehead contusion, with swelling a proximally 3 cm, no laceration, no depression of scalp/sinus obvious EYES: Pupils equal round and reactive. Extraocular motions intact. No scleral icterus. No injection or drainage. ENT: Nose without bleeding, purulent drainage. Throat without erythema, tonsillar hypertrophy or exudate. Airway patent. NECK: Trachea midline. Seems to move neck easily without discomfort CARDIOVASCULAR: Regular rate and rhythm without murmurs, gallops, or rubs. RESPIRATORY: Clear to auscultation. Breath sounds equal bilaterally. No wheezes, rales, or rhonchi. GASTROINTESTINAL: Abdomen soft, non-tender, nondistended. EXTREMITIES: Left thumb with dorsal radial aspect long axis vertical lacerati on, no visible tendon structure. No gross deformities. No other extremity injuries obvious. Sensation intact to light touch either side thumb. No edema or joint tenderness. BACK: Nontender without deformity or crepitance. No flank tenderness. NEURO: AOx3. Motor functions grossly nonfocal SKIN: No rash or erythema of visible areas Initial Vital Signs Initial Vital Signs: Vital Signs Temperature 98 F 04/25/24 17:32 Pulse Rate 70 04/25/24 17:32 Respiratory Rate 17 04/25/24 17:32 Blood Pressure 154/70 H 04/25/24 17:32 Pulse Oximetry 97 04/25/24 17:32 Oxygen Delivery Method Room Air 04/25/24 17:32 Procedures Laceration Repair Laceration 1: Time of procedure: 23:24 Site: hand (Left thumb) Side (If applicable): left Size (cm): 1.5 Description: linear Depth: simple, single layer Local Anesthetic: lidocaine 1% Amount of anesthesia used (mL): 3 Skin layer closed with: nylon Skin layer suture size: 5-0 Number of sutures: 5 Technique: simple, interrupted Course Orders Ordered: Discontinued Medications Diphtheria/Tetanus/Acell Pertussis (Tet,Diph,Pertuss(Acell),Vac/Pf 0.5 Ml Syringe) 0.5 ml IM .ONCE ONE Stop: 04/25/24 22:00 Last Admin: 04/25/24 22:12 Dose: 0.5 ml Documented By: RAPHAEL Lidocaine HCl (Lidocaine 1% 20 Ml) 20 ml INJ INTRA-OP ONE Stop: 04/25/24 22:46 Last Admin: 04/25/24 22:58 Dose: 20 ml Documented By: AB Vital Signs Vital signs: Vital Signs - 8 hr 04/25/24 20:21 04/25/24 20:22 04/25/24 20:22 Temperature Pulse Rate 65 68 Respiratory Rate Blood Pressure 140/76 Pulse Oximetry 95 96 Oxygen Delivery Method 04/25/24 20:23 04/25/24 20:30 04/25/24 20:30 Temperature Pulse Rate 67 67 Respiratory Rate 17 Blood Pressure 140/76 129/59 L Pulse Oximetry 96 95 Oxygen Delivery Method Room Air 04/25/24 21:00 04/25/24 21:01 04/25/24 21:01 Temperature Pulse Rate 61 62 Respiratory Rate Blood Pressure 127/60 Pulse Oximetry 100 100 Oxygen Delivery Method 04/25/24 21:30 04/25/24 21:31 04/25/24 21:31 Temperature Pulse Rate 61 61 Respiratory Rate Blood Pressure 122/56 L Pulse Oximetry 100 100 Oxygen Delivery Method 04/25/24 22:00 04/25/24 22:01 04/25/24 22:01 Temperature Pulse Rate 59 L 59 L Respiratory Rate Blood Pressure 138/63 Pulse Oximetry 100 100 Oxygen Delivery Method 04/25/24 23:05 04/25/24 23:32 Temperature 98.6 F Pulse Rate 66 60 Respiratory Rate 18 Blood Pressure 133/60 Pulse Oximetry 92 98 Oxygen Delivery Method Room Air MDM - Wound/Laceration MDM Narrative Medical decision making narrative: 78-year-old female with ground level fall, left forehead contusion, declines imaging when offered, does not take blood thinner medications, nonfocal exam, no nausea or vomiting. Left thumb laceration linear near joint line, likely not amenable to skin glue closure due to risk of dehiscence. Primary closure advised, patient gave verbal consent. See procedure note, primary closure with sutures, finger dressing. Wound check advised, suture removal discussed, tetanus updated. Home with family. Return precautions discussed Discharge Plan Departure Patient Disposition: Home Clinical Impression: Fall from ground level, Laceration of thumb, Forehead contusion Instructions: DI for Laceration Repair Activity Restrictions/Additional Instructions: Ground level fall this morning, forehead contusion, no loss of consciousness, no focal weakness or numbness, no nausea or vomiting. Examination shows left forehead area contusion. No other craniofacial injuries obvious on examination, moving neck well, nonfocal neurological exam. We discussed advanced imaging such as CT head, declined for now. Laceration also noted left thumb area, near joint line mobile area, likely increased risk separation if skin glue closure only, suture closure indicated. Wound check advised next 2-3 days. Suture removal 7-10 days. Tetanus update given in emergency department. Prescriptions: No Action amlodipine 2.5 mg Tablet 2.5 mg PO BEDTIME aspirin 81 mg Tablet,Delayed Release (Dr/Ec) 81 mg PO DAILY lovastatin 20 mg Tablet 20 mg PO BEDTIME Referrals: Talia Whitten MD [Primary Care Provider] - Stand Alone Forms: Patient Portal/API
[2024-04-25] MEDS: LIDOCAINE 1% 20 ML INJ (22:58)
== END 2024-04-25 23:34 | disposition home or self-care (01) ==
PROVIDERS: Emergency Provider Emergency Medicine; Family Provider Physician Assistant; PCP Internal Medicine
DX: S61.012A Laceration without foreign body of left thumb without damage to nail, initial encounter (principal); S00.83XA Contusion of other part of head, initial encounter; W18.30XA Fall on same level, unspecified, initial encounter; Z23 Encounter for immunization
CPT/HCPCS: 12001; 90471; 99283; 99284; 90715

== ENCOUNTER → 2025-04-17 13:59 | Outpatient (CLI) | payer MEDICARE, SELFPAY ==
[2020-02-28 13:46] VITALS: BMI 37.2
--- NOTE | 2025-04-17 14:01 | DI.MG.S_ITS ---
MM screening mammo BI: 04/17/2025. BI-RADS: 1 CLINICAL: 79-year old female for bilateral screening mammogram. Tyrer-Cuzick lifetime risk of 2.2%. No personal or first-degree family history of breast cancer. PRIOR EXAMS 04/12/2024, 03/30/2023, 04/21/2022, 03/26/2022. MAMMOGRAPHY TECHNIQUE: 2D and 3D (tomosynthesis) digital mammographic views obtained, with additional images as needed for full coverage. Current study was also evaluated with a Computer Aided Detection (CAD) system. DENSITY B. There are scattered areas of fibroglandular density. MAMMOGRAPHY FINDINGS Bilateral: No suspicious mass, asymmetry, microcalcification, or other abnormality seen. IMPRESSION: * No evidence of malignancy. RECOMMENDATIONS Bilateral * Annual screening mammography. OVERALL ASSESSMENT CATEGORY BI-RADS-1: Negative. The [employer] recommends annual screening mammography beginning at age 40 for women with average risk of breast cancer. ELECTRONICALLY SIGNED: Seda Elizabeth M.D. on 04/19/2025 at 04:38:20 PM PT Interpreting Station ID: [id number]
== END ==
LOC: MAMMO 14:00
PROVIDERS: Family Provider Physician Assistant; PCP Internal Medicine; Referring Provider Internal Medicine; Visit Provider Internal Medicine
DX: Z12.31 Encounter for screening mammogram for malignant neoplasm of breast (principal)
CPT/HCPCS: 77063; 77067